=== PATIENT | male | born 1995 | race Caucasian/White ===

== ENCOUNTER 2023-02-06 06:42 | Outpatient (REF) | payer OTHER, SELFPAY ==
[2023-02-06 07:05] LABS: MANUAL DIFF FLAG NO
[2023-02-06 08:05] LABS: Basophils Percent Auto 0.5 % (0-2); Eosinophils Absolute Auto 0.1 X10*3/uL (0.0-0.4); Eosinophils Percent Auto 1.5 % (0-4); Hematocrit 47.4 % (42.0-52.0); Hemoglobin 15.3 g/dl (14.0-18.0); Imm Gran Abs Auto 0.03 X10*3/uL (0.00-0.03); Imm Gran Pct Auto 0.4 % (0.0-0.4); Lymphocytes Absolute Auto 1.2 X10*3/uL (1.2-4.9); Mean Corpuscular HGB Conc 32.3 g/dl (31.0-36.0); Mean Corpuscular Hemoglobin 28.5 pg (27.0-33.0); Mean Corpuscular Volume 88.4 fL (80.0-98.0); Monocytes Absolute Auto 0.8 X10*3/uL (0.1-1.2); Monocytes Percent Auto 9.8 % (2-11); Neutrophils Absolute Auto 6.3 x10*3/uL (2.0-8.3); Neutrophils Percent Auto 73.8 % (45-73); Platelet Count 247 X10*3/uL (160-400); Red Blood Count 5.36 X10*6/uL (4.60-5.80); Red Cell Distribution Width 13.4 % (11.0-16.0); White Blood Count 8.6 X10*3/uL (4.8-10.8)
[2023-02-06 09:53] LABS: Alanine Aminotransferase 22 U/L (0-40); Albumin Level 4.4 g/dL (3.5-5.0); Alkaline Phosphatase 85 U/L (39-117); Anion Gap 15 (12-20); Aspartate Amino Transferase 25 U/L (5-37); Bilirubin Total 0.5 mg/dL (0.0-1.0); Blood Urea Nitrogen 11 mg/dL (9-16); Calcium 9.5 mg/dL (8.4-10.2); Carbon Dioxide 29 mmol/L (22-29); Chloride 105 mmol/L (96-108); Cholesterol 185 mg/dL; Estimated Glomerular Filt Rate > 60; Glucose Fasting 78 mg/dL (60-99); HDL Cholesterol 43 mg/dL; LDL Cholesterol Calculated 122 mg/dl; Potassium 4.4 mmol/L (3.3-5.1); Sodium 145 mmol/L (135-145); Thyroid Stimulating Hormone 2.32 uIU/mL (0.32-4.0); Total Protein 6.8 g/dL (6.5-8.0); Triglycerides 101 mg/dL
== END 2023-02-06 06:43 | disposition home or self-care (01) ==
LOC: HO.LAB 06:42
PROVIDERS: PCP Internal Medicine; Visit Provider Internal Medicine
DX: N28.9 Disorder of kidney and ureter, unspecified (principal); E03.9 Hypothyroidism, unspecified; D64.9 Anemia, unspecified; E78.5 Hyperlipidemia, unspecified
CPT/HCPCS: 36415; 80053; 80061; 84443; 85025

== ENCOUNTER 2023-08-16 13:15 | Emergency (ER) | payer OTHER, SELFPAY ==
[2023-08-16 13:25] VITALS: BP 121/70; BP 161/71; PULSE 100; PULSE 118; RESP 22; O2SAT 94; O2SAT 96; BMI 31.6
[2023-08-16 13:34] VITALS: BP 138/68; PULSE 97; RESP 26; TEMP 35.7; O2SAT 98
--- NOTE | 2023-08-16 14:01 | ED.GENADULT ---
HPI - General Adult General Chief complaint: General Medical Stated complaint: ?SEIZURE, AMS Time Seen by Provider: 08/16/23 13:23 History of Present Illness HPI narrative: Patient is a 27-year-old male history of being mentally challenged. Has a chromosomal deletion. Baseline function is a 6-year-old. History of being on Guanfacine and also fluoxetine. There has been no changes in medication. Patient had a sudden episode where he collapsed onto the floor. Sitting in a chair that time. Patient was found by driver wheelchair to be very lethargic. Eyes gazing to 1 side. He is not on any blood thinners. Baseline he is awake alert oriented to self able to recognize family. Patient has been very lethargic since. There was a question of seizure when the patient was a child. Not on medication. There is no fever no chills. Related Data Home Medications Medication Instructions Recorded Confirmed guanfacine 2 mg tablet,extended 2 mg PO QAM 01/19/21 01/24/23 release 24 hr hydroxyzine HCl 10 mg tablet 10 mg PO Q6H PRN 01/19/21 01/24/23 Previous Rx's Medication Instructions Recorded guanfacine 2 mg tablet 2 mg PO BEDTIME #90 tabs 02/28/23 fluoxetine 40 mg capsule 40 mg PO DAILY #90 caps 06/15/23 levetiracetam 500 mg tablet 500 mg PO BID #20 tabs 08/16/23 (Keppra) Allergies Allergy/AdvReac Type Severity Reaction Status Date / Time No Known Allergies Allergy Verified 01/24/23 10:01 Review of Systems Review of Systems: No fever no chills. Positive loss of consciousness is noted by bystander. Unable to obtain full review system 2nd patient's condition [facility] Past Medical History Attestation statement: The following information was validated with the patient. Medical History Chromosome abnormalities Cognitive decline Social History Social History Housing: House Alcohol intake: never Patient Tobacco Use Status: Never used Tobacco Smoked in Last 30 Days: No e-Cigarette/Vaping Use: Never Used Second Hand Smoke Exposure: No Use of substances other than those prescribed or required for medical reasons: No Advance Directives: No Advance Directives Information Provided: Yes service: No Current occupational status: disabled Cognitive needs: No Hearing needs: No Vision needs: No Physical Exam ED Vital Signs: Vital Signs - 24 hr 08/16/23 13:25 08/16/23 13:34 08/16/23 15:22 Temperature 96.2 F L Pulse Rate 100 97 94 Respiratory Rate 22 H 26 H 14 Blood Pressure 161/71 H 138/68 124/56 L Pulse Oximetry 94 98 95 Oxygen Delivery Method Room Air Room Air Room Air 08/16/23 17:53 Temperature Pulse Rate 94 Respiratory Rate 21 H Blood Pressure 108/64 Pulse Oximetry 93 Oxygen Delivery Method Room Air BMI result Body Mass Index 31.6 Appearance: Alert. Oriented to self No acute distress. Eyes: Pupils equal, round and reactive to light. ENT: Pharynx normal. Neck: Normal inspection. Neck supple. No lymph nodes noted. No crepitus CVS: Normal heart rate and rhythm. Pulses normal. Normal S1 and S2 Respiratory: No respiratory distress. Breath sounds normal. No Wheezing. No rales Abdomen: Soft and nontender. No rigidity. No distention. good BS x4 Skin: Skin warm and dry. Normal skin color. Normal skin turgor. Extremities: No lower extremity edema. Neurovascular intact to all extremities. No Lacerations. No Rash Neuro: Oriented to self. No motor deficit. No sensory deficit. Moving all extermities. No slurred speech Medications Administered Discontinued Medications Generic Name Dose Route Start Last Admin Trade Name Freq PRN Reason Stop Dose Admin Sodium Chloride 1,000 mls @ 999 mls/hr 08/16/23 14:00 08/16/23 15:21 Ns IV 08/16/23 15:00 Infused .Q1H1M DANIELA Infusion Sodium Chloride 1,000 mls @ 999 mls/hr 08/16/23 14:45 08/16/23 16:15 Ns IV 08/16/23 15:45 Infused .Q1H1M DANIELA Infusion Medical Decision Making Medical Decision Making [facility] Narrative: My interpretation of Patient's EKG showed a sinus pattern heart rate is 90 MT QRS QTC within normal limits is no acute ST segment elevation My interpretation patient's CT scan of the head was grossly negative. Patient monitor in the emergency department for many hours. The initial lactate was elevated consistent with having a seizure. A repeat lactate after IV fluid showed a normal lactate. There is no evidence for sepsis. Patient's mental status is now back to baseline. Attempted to contact Neurology multiple times no reply. Will start patient on Keppra given patient has a history of cognitive decline history of chromosomal abnormality in the past. Currently in stable condition. Finding discussed with family agree with plan. Will have patient closely follow-up with Neurology on an outpatient basis. Differential Diagnosis Differential Diagnoses: The differential diagnosis associated with the presentation includes Seizure syncope dehydration arrhythmia infection Admission/Observation Consideration of admission/observation: Escalation of care including admission/observation considered Patient mental status back to baseline no need for admission Lab Data MDM Lab Attestation statement: I reviewed the patient's lab results. 08/16/23 14:07 08/16/23 14:07 Labs: Lab Results 08/16/23 08/16/23 08/16/23 Range/Units 14:07 14:24 16:31 WBC 12.1 H (4.8-10.8) X10*3/uL RBC 5.14 (4.60-5.80) X10*6/uL Hgb 14.2 (14.0-18.0) g/dl Hct 43.6 (42.0-52.0) % MCV 84.8 (80.0-98.0) fL MCH 27.6 (27.0-33.0) pg MCHC 32.6 (31.0-36.0) g/dl RDW 13.8 (11.0-16.0) % Plt Count 273 (160-400) X10*3/uL MPV 11.5 (9.4-12.4) fL Immature Gran % (Auto) 1.1 H (0.0-0.4) % Neut % (Auto) 76.4 H (45-73) % Lymph % (Auto) 13.4 L (20-40) % Cameron % (Auto) 7.9 (2-11) % Eos % (Auto) 0.7 (0-4) % Baso % (Auto) 0.5 (0-2) % Lymph # (Auto) 1.6 (1.2-4.9) X10*3/uL Cameron # (Auto) 1.0 (0.1-1.2) X10*3/uL Eos # (Auto) 0.1 (0.0-0.4) X10*3/uL Baso # (Auto) 0.1 (0.0-0.2) X10*3/uL Abs Immat Gran (auto) 0.13 H (0.00-0.03) X10*3/uL Absolute Neuts (auto) 9.2 H (2.0-8.3) x10*3/uL Absolute Nucleated RBC 0.000 (0.0-0.012) X10*3/uL Nucleated RBC % (auto) 0.0 (0.0-0.2) /100WBC Sodium 136 (135-145) mmol/L Potassium 3.1 L D (3.3-5.1) mmol/L Chloride 99 (96-108) mmol/L Carbon Dioxide 18 L (22-29) mmol/L Anion Gap 22 H (12-20) BUN 10 (9-16) mg/dL Creatinine 0.84 (0.5-1.4) mg/dL Estim Creat Clear Calc 135.7 Estimated GFR > 60 Random Glucose 177 H (60-115) mg/dL Lactic Acid 4.7 H* (0.5-2.0) mmol/L Lactic Acid F/U @ 2Hr 1.4 (0.5-2.0) mmol/L Calcium 9.1 (8.4-10.2) mg/dL Total Bilirubin 0.4 (0.0-1.0) mg/dL AST 30 (5-37) U/L ALT 26 (0-40) U/L Alkaline Phosphatase 88 (39-117) U/L Total Protein 6.8 (6.5-8.0) g/dL Albumin 4.0 (3.5-5.0) g/dL Lipase 17 (8-78) U/L COVID-19 ([facility]) Negative (Negative) COVID-19 Clin Com See Note Independent Interpretation I performed an independent interpretation of an: EKG (Sinus heart rate is 90 MT QRS QTC within normal limits is no acute ST segment elevation noted.) and CT Scan (CT scan of the head was grossly negative for any acute evidence of bleeding. No fracture noted.) Radiology Impression Discussion of test interpretation with radiology: I have reviewed the radiologist's reading. Independent Historian Clinical information obtained from an independent historian. History obtained from or confirmed by: Parent Additional history obtained through patient's guardian and also patient's parent External Record Review External record reviewed: Office record Outpatient record reviewed Prescription Management Will give Keppra Chronic Conditions Depression, chromosomal abnormality cognitive issues Discharge Plan Discharge Clinical Impression: Chromosome abnormalities, Depression, Seizure Patient Disposition: Home, Self-Care Instructions: New-Onset Seizure in Adults (ED) Additional Instructions: Seizure precautions. No activities output urine danger care of a seizure that time. Prescriptions: New levetiracetam [Keppra] 500 mg tablet 500 mg PO BID Qty: 20 0RF No Action guanfacine 2 mg tablet 2 mg PO BEDTIME Qty: 90 8RF fluoxetine 40 mg capsule 40 mg PO DAILY Qty: 90 8RF guanfacine 2 mg tablet extended release 24 hr 2 mg PO QAM hydroxyzine HCl 10 mg tablet 10 mg PO Q6H PRN Referrals: Jorge Ferrera MD [Physician] - 08/20/23
[2023-08-16 14:11] LABS: MANUAL DIFF FLAG NO
[2023-08-16 14:16] LABS: Basophils Absolute Auto 0.1 X10*3/uL (0.0-0.2); Basophils Percent Auto 0.5 % (0-2); Eosinophils Absolute Auto 0.1 X10*3/uL (0.0-0.4); Eosinophils Percent Auto 0.7 % (0-4); Hematocrit 43.6 % (42.0-52.0); Hemoglobin 14.2 g/dl (14.0-18.0); Imm Gran Abs Auto 0.13 X10*3/uL (0.00-0.03); Imm Gran Pct Auto 1.1 % (0.0-0.4); Lymphocytes Absolute Auto 1.6 X10*3/uL (1.2-4.9); Lymphocytes Percent Auto 13.4 % (20-40); Mean Corpuscular HGB Conc 32.6 g/dl (31.0-36.0); Mean Corpuscular Hemoglobin 27.6 pg (27.0-33.0); Mean Corpuscular Volume 84.8 fL (80.0-98.0); Mean Platelet Volume 11.5 fL (9.4-12.4); Monocytes Percent Auto 7.9 % (2-11); Neutrophils Absolute Auto 9.2 x10*3/uL (2.0-8.3); Neutrophils Percent Auto 76.4 % (45-73); Platelet Count 273 X10*3/uL (160-400); Red Blood Count 5.14 X10*6/uL (4.60-5.80); Red Cell Distribution Width 13.8 % (11.0-16.0); White Blood Count 12.1 X10*3/uL (4.8-10.8)
[2023-08-16 14:28] LABS: Lactic Acid 4.7 mmol/L (0.5-2.0)
[2023-08-16 14:29] LABS: Alanine Aminotransferase 26 U/L (0-40); Alkaline Phosphatase 88 U/L (39-117); Anion Gap 22 (12-20); Aspartate Amino Transferase 30 U/L (5-37); Bilirubin Total 0.4 mg/dL (0.0-1.0); Blood Urea Nitrogen 10 mg/dL (9-16); Calcium 9.1 mg/dL (8.4-10.2); Carbon Dioxide 18 mmol/L (22-29); Chloride 99 mmol/L (96-108); Creatinine Clr Calc Pharmacy 135.7; Estimated Glomerular Filt Rate > 60; Glucose Random 177 mg/dL (60-115); Lipase 17 U/L (8-78); Potassium 3.1 mmol/L (3.3-5.1); Sodium 136 mmol/L (135-145); Total Protein 6.8 g/dL (6.5-8.0)
[2023-08-16 14:47] LABS: IDNOW Serial# 9DB6401D
[2023-08-16 14:48] LABS: COVID-19 Test Negative (Negative)
[2023-08-16 15:22] VITALS: BP 124/56; PULSE 94; RESP 14; O2SAT 95
[2023-08-16 17:53] VITALS: BP 108/64; PULSE 94; RESP 21; O2SAT 93
[2023-08-16 20:40] VITALS: BP 107/67; PULSE 93; RESP 18; TEMP 36.9; O2SAT 98
== END 2023-08-16 21:02 | disposition home or self-care (01) ==
PROVIDERS: Emergency Provider Emergency Medicine Emergency Medical Services; PCP Internal Medicine
DX: Q99.9 Chromosomal abnormality, unspecified (principal); F32.A Depression, unspecified; R56.9 Unspecified convulsions; R41.89 Other symptoms and signs involving cognitive functions and awareness; Z79.899 Other long term (current) drug therapy; Z11.52 Encounter for screening for COVID-19
CPT/HCPCS: 36415; 70450; 72125; 80053; 83605; 83690; 85025; 87635; 93005; 96361; 96365; 99284; J1953

== ENCOUNTER 2023-08-21 09:08 | Outpatient (AMB) | payer OTHER, SELFPAY ==
--- NOTE | 2023-08-21 09:09 | MHC.PC.OV ---
Vital Signs 08/21/23 09:10 Height 5 ft 5 in Weight 191 lb BMI 31.8 BP 130/70 Blood Pressure Location Lt brachial Position Sitting Pulse 90 Pulse Source Pulse Oximeter Pulse Oximetry (%) 98 Oxygen Delivery Method Room Air Intake Visit Reasons: seizures, need referral Technical Marketing Consultant: Present Allergies No Known Allergies Allergy (Verified 08/21/23 09:10) Medication List - Last Reconciled 08/21/23 by Compa Weathers MD fluoxetine 40 mg PO DAILY guanfacine 2 mg PO BEDTIME guanfacine ER 2 mg PO QAM hydroxyzine HCl 10 mg PO Q6H PRN levetiracetam (Keppra) 500 mg PO BID Tobacco use date assessed: 01/24/23 Dental Screening Dental Screen Date: 08/21/23 Did you have a dental visit in the last 12 months?: No Did you have a dental problem in the last 6 months where you did not have access to dental care?: No Was dental information given to patient?: Patient has dentist HPI seizures, need referral HPI Details had a generalized Sz last week; brought to er and begun on Keppra; none since; needs neuro [facility] Medical History (Updated 08/21/23 @ 09:33 by Compa Weathers MD) Seizure Chromosome abnormalities Cognitive decline Social History Housing: House Alcohol intake: never Patient Tobacco Use Status: Never used Tobacco e-Cigarette/Vaping Use: Never Used Second Hand Smoke Exposure: No service: No Current occupational status: disabled Cognitive needs: No Hearing needs: No Vision needs: No Questionnaire PHQ-9 Over the last 2 weeks, how often have you been bothered by any of the following problems? 1. Little interest or pleasure in doing things: not at all 2. Feeling down, depressed, or hopeless: not at all 3. Trouble falling or staying asleep, or sleeping too much: not at all 4. Feeling tired or having little energy: not at all 5. Poor appetite or overeating: not at all 6. Feeling bad about yourself - or that you are a failure or have let yourself or your family down: not at all 7. Trouble concentrating on things, such as reading the newspaper or watching television: not at all 8. Moving or speaking so slowly that other people could have noticed. Or the opposite - being so fidgety or restless that you have been moving around a lot more than usual: not at all 9. Thoughts that you would be better off or of hurting yourself in some way: not at all Total score: 0 Depression Screening Interpretation: Negative Depression Screening Done: Yes 31156 - PHQ-9 Billing: Yes Source: Developed by Drs. Jovany Fan, Kaur Ang, Chucky Dos Santos and colleagues, with an educational sabrina from [employer]. Thrive Questionnaire Date Thrive assessed: 01/24/23 AUDIT C Alcohol Use Questionnaire (AUDIT-C) 1. How often do you have a drink containing alcohol?: Never Total Score: 0 Score Reviewed/Action Taken: Yes ORTIZ-7 AMB Questionnaire ORTIZ-7 Date ORTIZ - 7 assessed: 01/24/23 Source: Developed by Drs. Jovany Fan, Kaur Ang, Chucky Dos Santos and colleagues, with an educational sabrina from [employer]. Review of Systems Const Denies chills, Denies headache(s) and Denies weight loss ENT Denies headache(s) Card Denies chest pain, Denies syncope, Denies irregular heart rhythm and Denies dyspnea Resp Denies chest congestion, Denies cough and Denies dyspnea GI Denies abdominal pain, Denies change in stool character, Denies nausea and Denies vomiting Musc Denies deformity and Denies joint swelling Neuro Denies syncope and Denies headache(s) Physical exam (Primary Care) Vital Signs: Last Vital Signs Pulse 90 08/21/23 09:10 BP 130/70 08/21/23 09:10 Pulse Ox 98 08/21/23 09:10 Oxygen Delivery Method Room Air 08/21/23 09:10 BMI result Body Mass Index 31.8 Tobacco/Smoking Status: Tobacco use Status Tobacco use date assessed 01/24/23 08/21/23 09:17 Patient Tobacco Use Status Never used Tobacco 08/21/23 09:17 e-Cigarette/Vaping Use Never Used 08/21/23 09:17 PHQ-9: PHQ-9 Score PHQ-9: Total score 0 08/21/23 09:17 Depression Screening Interpretation: Negative Thrive Assessment: Date of Thrive Assessment Date Thrive assessed 03/15/23 10/10/23 09:17 Const General: cooperative, comfortable, no acute distress and alert Neck Neck: Yes no lymphadenopathy Thyroid: Thyroid normal Resp Effort & Inspection: normal respiratory effort Auscultation: clear to auscultation bilaterally Percussion: percussion normal Cardio Jugular venous distension: no JVD Palpation: normal PMI Rate: regular rate Rhythm: regular rhythm Heart sounds: S1 normal heart sound present and S2 normal heart sound present GI Inspection: Yes normal to inspection Palpation (GI): No hepatosplenomegaly present Skin General skin exam: no rashes or lesions noted Extrem General: Yes no clubbing, cyanosis or edema Assessment and Plan Assessment & Plan (1) Seizure: Code(s): R56.9 - Unspecified convulsions Plan: referred Orders: Referrals Neurology Referral R56.9 - Unspecified convulsions Coding Level of Care Code Est Pt Level 3 (73083) Diagnoses Seizure R56.9
[2023-08-21 09:10] VITALS: BP 130/70; PULSE 90; O2SAT 98; BMI 31.8
== END 2023-08-21 09:32 | disposition home or self-care (01) ==
PROVIDERS: PCP Internal Medicine; Visit Provider Internal Medicine
DX: R56.9 Unspecified convulsions (principal)
CPT/HCPCS: 99213

== ENCOUNTER 2024-01-28 09:06 | Outpatient (AMB) | payer OTHER, SELFPAY ==
--- NOTE | 2024-01-28 09:08 | A.OFFPC_ITS ---
Vital Signs 01/28/24 09:09 Height 5 ft 5 in Weight 195 lb BMI 32.4 BP 104/60 Blood Pressure Location Lt brachial Position Sitting Pulse 67 Pulse Source Pulse Oximeter Pulse Oximetry (%) 98 Oxygen Delivery Method Room Air Intake Visit Reasons: Annual exam Property Management Accountant Required: No Accompanied by: Self / Same As Patient Allergies No Known Allergies Allergy (Verified 01/28/24 09:09) Medication List - Last Reconciled 01/28/24 by Compa Weathers MD fluoxetine 40 mg PO DAILY guanfacine 2 mg PO BEDTIME guanfacine ER 2 mg PO QAM hydroxyzine HCl 10 mg PO Q6H PRN levetiracetam (Keppra) 500 mg PO BID Tobacco use date assessed: 01/28/24 HPI Annual exam HPI Details cognitive delay; doing well; compliant [facility] Medical History (Updated 01/28/24 @ 09:26 by Compa Weathers MD) Seizure Chromosome abnormalities Cognitive decline Social History (Reviewed 08/21/23 @ 09:11 by Dyan Joseph [facility]) Housing: House Alcohol intake: never Patient Tobacco Use Status: Never used Tobacco e-Cigarette/Vaping Use: Never Used Second Hand Smoke Exposure: No service: No Current occupational status: disabled Cognitive needs: No Hearing needs: No Vision needs: No Questionnaire PHQ-9 Over the last 2 weeks, how often have you been bothered by any of the following problems? 1. Little interest or pleasure in doing things: not at all 2. Feeling down, depressed, or hopeless: not at all 3. Trouble falling or staying asleep, or sleeping too much: not at all 4. Feeling tired or having little energy: not at all 5. Poor appetite or overeating: not at all 6. Feeling bad about yourself - or that you are a failure or have let yourself or your family down: not at all 7. Trouble concentrating on things, such as reading the newspaper or watching television: not at all 8. Moving or speaking so slowly that other people could have noticed. Or the opposite - being so fidgety or restless that you have been moving around a lot more than usual: not at all 9. Thoughts that you would be better off or of hurting yourself in some way: not at all Total score: 0 Depression Screening Interpretation: Negative Depression Screening Done: Yes 35521 - PHQ-9 Billing: Yes Source: Developed by Drs. Jovany Fan, Kaur Ang, Chucky Dos Santos and colleagues, with an educational sabrina from [employer]. Thrive Questionnaire Date Thrive assessed: 01/24/23 ORTIZ-7 AMB Questionnaire ORTIZ-7 Date ORTIZ - 7 assessed: 01/24/23 Source: Developed by Drs. Jovany Fan, Kaur Ang, Chucky Dos Santos and colleagues, with an educational sabrina from [employer]. Review of Systems Const Denies chills, Denies fatigue, Denies headache(s) and Denies weight loss Eyes Denies change in vision, Denies diplopia and Denies eye pain ENT Denies vertigo, Denies dizziness, Denies headache(s) and Denies nasal discharge Card Denies chest pain, Denies rapid heart rate and Denies dyspnea on exertion Resp Denies chest congestion, Denies cough, Denies pain with cough and Denies dyspnea on exertion GI Denies abdominal pain, Denies hematochezia and Denies change in bowel habits Musc Denies myalgias, Denies arthralgias and Denies joint swelling Skin/Breast Denies lesions and Denies unusual bruising Neuro Denies vertigo, Denies dizziness, Denies headache(s) and Denies focal weakness Endo Denies fatigue Physical exam (Primary Care) Vital Signs: Last Vital Signs Pulse 67 01/28/24 09:09 BP 104/60 01/28/24 09:09 Pulse Ox 98 01/28/24 09:09 Oxygen Delivery Method Room Air 01/28/24 09:09 BMI result Body Mass Index 32.4 Tobacco/Smoking Status: Tobacco use Status Tobacco use date assessed 01/28/24 01/28/24 09:09 Patient Tobacco Use Status Never used Tobacco 01/28/24 09:09 e-Cigarette/Vaping Use Never Used 01/28/24 09:09 PHQ-9: PHQ-9 Score PHQ-9: Total score 0 01/28/24 09:09 Depression Screening Interpretation: Negative Thrive Assessment: Date of Thrive Assessment Date Thrive assessed 01/24/23 01/28/24 09:09 Const General: cooperative, healthy appearing and no acute distress Orientation/consciousness: oriented to person, oriented to place and oriented to time HENMT Head: Yes normal to inspection, Yes normocephalic and Yes atraumatic Mouth: Normal oral and palatal mucosa present and tongue normal Throat: Yes posterior oropharynx normal and Yes uvula midline Eyes General: appearance normal, both eyes and all related structures Neck Neck: Yes normal visual inspection, Yes full ROM and Yes no lymphadenopathy Thyroid: Thyroid normal Carotids: normal carotid upstroke Chest Chest palpation & inspection: normal inspection of the chest Resp Effort & Inspection: normal respiratory effort and able to speak in complete sentences Auscultation: clear to auscultation bilaterally Cardio Jugular venous distension: no JVD Palpation: normal PMI Rate: regular rate Rhythm: regular rhythm Heart sounds: S1 normal heart sound present and S2 normal heart sound present GI Inspection: Yes normal to inspection Palpation (GI): Soft to palpation and No hepatosplenomegaly present Auscultation: normal bowel sounds General: Yes no CVA tenderness Back/Spine/Pelvis Back: no CVA tenderness Skin General skin exam: no rashes or lesions noted Neuro General: oriented to person, oriented to place and oriented to time Extrem General: Yes normal to inspection and Yes full ROM Assessment and Plan Assessment & Plan (1) Physical exam: Code(s): Z00.00 - Encounter for general adult medical examination without abnormal findings Plan: stable (2) Cognitive developmental delay: Code(s): F81.9 - Developmental disorder of scholastic skills, unspecified Plan: sees neuro Coding Level of Care Code Est Pt Prev Care 18-39y(97245) Diagnoses Physical exam Z00.00 Cognitive developmental delay F81.9
[2024-01-28 09:09] VITALS: BP 104/60; PULSE 67; O2SAT 98; BMI 32.4
== END 2024-01-28 09:25 | disposition home or self-care (01) ==
PROVIDERS: Visit Provider Internal Medicine
DX: Z00.00 Encounter for general adult medical examination without abnormal findings (principal); F81.9 Developmental disorder of scholastic skills, unspecified
CPT/HCPCS: 99395

== ENCOUNTER 2025-02-11 15:02 | Outpatient (AMB) | payer OTHER, SELFPAY ==
--- NOTE | 2025-02-11 15:07 | A.OFFPC_ITS ---
Vital Signs 02/11/25 15:11 Height 5 ft 5 in Weight 178 lb 2 oz BMI 29.6 BP 130/74 Blood Pressure Location Lt brachial Position Sitting Pulse 92 Pulse Source Pulse Oximeter Temp 96.6 F L Temp Source Temporal Artery Scan Pulse Oximetry (%) 97 Oxygen Delivery Method Room Air Intake Visit Reasons: PE Intake Note: Patient is here today for a physical and JOSE from Dr Weathers. Medical Researcher Required: No Metal Fabricator Helper: Present Accompanied by: Mother Allergies No Known Allergies Allergy (Verified 02/11/25 15:23) Medication List - Last Reconciled 02/11/25 by Vanesa Olea PA-C fluoxetine 40 mg PO DAILY guanfacine 2 mg PO BEDTIME guanfacine ER 2 mg PO QAM hydroxyzine HCl 10 mg PO Q6H PRN levetiracetam (Keppra) 500 mg PO BID Tobacco use date assessed: 02/11/25 Dental Screening Dental Screen Date: 02/11/25 Did you have a dental visit in the last 12 months?: No Did you have a dental problem in the last 6 months where you did not have access to dental care?: No Was dental information given to patient?: No HPI PE HPI Details 29-year-old male with past medical histo ry of cognitive developmental delay, depression, seizure last seen by Dr. Weathers 01/2024 coming in for annual exam. Presenting with an annual physical examination. Patient presents with his mother who is his primary historian. History of depression, currently managed with fluoxetine, with no recent changes in medication regimen. Depression and anxiety screenings were negative. Seizures managed with Keppra twice daily, with the last seizure occurring in August 2023, patient does also see [facility]rology. Otomycosis identified during the physical examination, showing significant discharge due to water retention in the ear canals from showers. Hydroxyzine used previously for aggression, not utilized recently. [facility] Medical History Seizure Chromosome abnormalities Cognitive decline Surgical History History of surgery of head Social History Housing: House Alcohol intake: never Patient Tobacco Use Status: Never used Tobacco e-Cigarette/Vaping Use: Never Used Second Hand Smoke Exposure: No service: No Current occupational status: disabled Cognitive needs: No Hearing needs: No Vision needs: No Questionnaire PHQ-9 Over the last 2 weeks, how often have you been bothered by any of the following problems? 1. Little interest or pleasure in doing things: not at all 2. Feeling down, depressed, or hopeless: not at all 3. Trouble falling or staying asleep, or sleeping too much: not at all 4. Feeling tired or having little energy: not at all 5. Poor appetite or overeating: not at all 6. Feeling bad about yourself - or that you are a failure or have let yourself or your family down: not at all 7. Trouble concentrating on things, such as reading the newspaper or watching television: not at all 8. Moving or speaking so slowly that other people could have noticed. Or the opposite - being so fidgety or restless that you have been moving around a lot more than usual: not at all 9. Thoughts that you would be better off or of hurting yourself in some way: not at all Total score: 0 Depression Screening Interpretation: Negative Depression Screening Done: Yes Source: Developed by Drs. Jovany Fan, Kaur Ang, Chucky Dos Santos and colleagues, with an educational sabrina from [employer]. Thrive Questionnaire Date Thrive assessed: 02/11/25 I am a: Patient What is your living situation today?: I have a steady place to live Within the past 12 months, did the food you bought not last and you didn't have the money to get more?: Never true Within the past 12 months, did you worry whether your food would run out before you got money to buy more?: Never true Do you have trouble paying for medicines?: No Do you have trouble getting transportation to medical appointments?: No Do you have trouble paying your heating and electricity bill?: No Do you have trouble taking care of your child, family member or friend?: No Do you have trouble with day-to-day activities such as bathing, preparing meals, shopping, managing finances, etc.?: No Are you currently unemployed and looking for a job?: No Are you interested in more education?: No Please select the resources that you would like help with: None Currently or been in a relationship where the following occur: No concerns reported THRIVE Score: 0 AUDIT C Alcohol Use Questionnaire (AUDIT-C) 1. How often do you have a drink containing alcohol?: Never Total Score: 0 ORTIZ-7 AMB Questionnaire ORTIZ-7 Date ORTIZ - 7 assessed: 02/11/25 Feeling nervous, anxious, or on edge: 0 = Not at all Not being able to stop or control worryin = Not at all Worrying too much about different things: 0 = Not at all Trouble relaxin = Not at all Being so restless that it is hard to sit still: 0 = Not at all Becoming easily annoyed or irritable: 0 = Not at all Feeling afraid as if something awful might happen: 0 = Not at all Total ORTZI-7 score (0-4 normal; 5-9 mild; 10-14 moderate; 15-21 severe): 0 Source: Developed by Drs. Jovany Fan, Kaur Ang, Chucky Dos Santos and colleagues, with an educational sabrina from [employer]. ORTIZ-7 Assessment Billing ORTIZ-7 Assessment Tool: ORTIZ-7 Assessment 42980 Review of Systems Const Details: Obtained primarily through patient is mother Denies fever(s), Denies headache(s) and Denies poor appetite Eyes Reports no additional complaints ENT Denies dysphagia, Denies dizziness and Denies headache(s) Card Denies chest pain, Denies syncope, Denies edema, Denies irregular heart rhythm, Denies lightheadedness and Denies dyspnea Resp Denies cough and Denies dyspnea GI Denies abdominal pain, Denies constipation, Denies dysphagia, Denies diarrhea, Denies nausea and Denies vomiting Reports no additional complaints Musc Reports no additional complaints and Denies abnormal gait Skin/Breast Reports system reviewed and no additional complaints, except as documented Neuro Denies abnormal gait, Denies dizziness, Denies syncope and Denies headache(s) Psych Reports no additional complaints Physical exam (Primary Care) Vital Signs: Last Vital Signs Temp 96.6 F L 02/11/25 15:11 Pulse 92 02/11/25 15:11 BP 130/74 02/11/25 15:11 Pulse Ox 97 02/11/25 15:11 Oxygen Delivery Method Room Air 02/11/25 15:11 BMI result Body Mass Index 29.6 Tobacco/Smoking Status: Tobacco use Status Tobacco use date assessed 01/28/24 01/27/25 08:06 Patient Tobacco Use Status Never used Tobacco 01/27/25 08:06 e-Cigarette/Vaping Use Never Used 01/27/25 08:06 Depression Screening Interpretation: Negative Thrive Assessment: Date of Thrive Assessment Date Thrive assessed 01/24/23 01/27/25 08:06 Currently or been in a relationship where the following occur: No concerns reported Const General: cooperative, healthy appearing, comfortable and no acute distress Orientation/consciousness: patient oriented x3 HENMT Head: Yes normocephalic Ears: hearing grossly normal bilaterally and Abnormal EAC present otic discharge purulent on the right General nose exam: Normal external nose present Eyes General: appearance normal, both eyes and all related structures Conjunctivae: conjunctivae normal Neck Neck: Yes full ROM and Yes no lymphadenopathy Resp Effort & Inspection: normal respiratory effort Auscultation: clear to auscultation bilaterally, no crackles, no rales, no rhonchi and no wheezes Cardio Rate: regular rate Rhythm: regular rhythm Skin General skin exam: no rashes or lesions noted Neuro General: patient oriented x3 Gait exam (Neuro): Normal gait present Extrem General: Yes normal to inspection, Yes full ROM and No edema Psych Affect: normal affect Attitude: cooperative Insight: Good insight present (Psych) Judgement: Good judgement present (Psych) Coding Level of Care Code Est Pt Prev Care 18-39y(00437) Diagnoses Cognitive developmental delay F81.9 Seizure R56.9 Depression F32.A Physical exam Z00.00 Otitis externa H60.90 Additional Codes ORTIZ-7 Assessment Billing - ORTIZ-7 Assessment Tool: ORTIZ-7 Assessment 90812 ([id number]) Assessment & Plan Assessment & Plan (1) Cognitive developmental delay: Code(s): F81.9 - Developmental disorder of scholastic skills, unspecified Category: Medical Plan: Patient has support system at home. Currently using fluoxetine for depression and hydroxyzine as needed for agitation. (2) Seizure: Code(s): R56.9 - Unspecified convulsions Category: Medical Plan: Patient currently following with [facility] Neurology Dr. Ferrera for management of seizure disorder. Last seizure August 2023 without recurrence. (3) Depression: Code(s): F32.A - Depression, unspecified Category: Medical Plan: For depression, the patient will continue current management with fluoxetine as screenings were negative. (4) Physical exam: Code(s): Z00.00 - Encounter for general adult medical examination without abnormal findings Category: Medical Plan: Blood work will be conducted to include general health markers such as kidney and liver function, while cholesterol screening is deferred until the patient is closer to 30 years of age. The patient will be careful with potential exacerbations and is advised to return for immediate care if symptoms deviate. Healthy diet and regular exercise is encouraged. (5) Otitis externa: Code(s): H60.90 - Unspecified otitis externa, unspecified ear Category: Medical Plan: On exam patient having copious amounts of purulent discharge within the right ear canal. Patient's mom does report itching in bilateral ears. Presentation most consistent with otitis externa we will prescribe ear drops and advised to follow up if itching persists. Plan This note was constructed using voice recognition software. While every effort has been made to ensure accuracy and draw furnace tender, still areas may have been included sometimes these areas may affect the content or meeting of the given symptoms. Total time spent caring for the patient today was 30 minutes. This includes time spent before the visit reviewing the chart, time spent during the visit, and time spent after the visit and documentation. Patient was informed and verbally consented to the use of an ambient scribe for clinic note documentation during this visit. Orders: Orders Vitamin D 25-OH Total Today Z00.00 - Encounter for general adult medical examination without abnormal findings TSH reflex Free T4 Today Z00.00 - Encounter for general adult medical examination without abnormal findings Comprehensive Met. Panel Today Z00.00 - Encounter for general adult medical examination without abnormal findings Complete Blood Count Auto Diff Today Z00.00 - Encounter for general adult medical examination without abnormal findings Vitamin B12 and Folate Today Z00.00 - Encounter for general adult medical examination without abnormal findings Free T4 (Free Thyroxine) Today Z00.00 - Encounter for general adult medical examination without abnormal findings Medications: New ciprofloxacin-hydrocortisone 0.2-1 % (Cipro HC) 3 drps otic (ear) right BID 7 days 10 mL 0RF
[2025-02-11 15:11] VITALS: BP 130/74; PULSE 92; TEMP 35.9; O2SAT 97; BMI 29.6
== END 2025-02-11 15:34 | disposition home or self-care (01) ==
LOC: HO.HMCH 15:02
PROVIDERS: PCP Internal Medicine
DX: Z00.00 Encounter for general adult medical examination without abnormal findings (principal); F81.9 Developmental disorder of scholastic skills, unspecified; R56.9 Unspecified convulsions; F32.A Depression, unspecified; H60.91 Unspecified otitis externa, right ear

== ENCOUNTER → 2025-02-11 15:02 | Outpatient (BNVA) | payer OTHER, SELFPAY | PROVIDERS: PCP Internal Medicine | DX: Z00.00 Encounter for general adult medical examination without abnormal findings (principal); F81.9 Developmental disorder of scholastic skills, unspecified; R56.9 Unspecified convulsions; F32.A Depression, unspecified; H60.90 Unspecified otitis externa, unspecified ear | CPT/HCPCS: 96127; 99395 ==

== ENCOUNTER 2025-07-07 14:01 | Outpatient (AMB) | payer MEDICARE, MEDICAID, SELFPAY ==
--- NOTE | 2025-07-07 14:09 | MHC.PC.OV ---
Vital Signs 07/07/25 14:11 Height 5 ft 5 in Weight 168 lb 2 oz BMI 28.0 BP 118/66 Blood Pressure Location Lt brachial Position Sitting Pulse 158 H Pulse Source Pulse Oximeter Pulse Oximetry (%) 90 L Oxygen Delivery Method Room Air Intake Visit Reasons: vomiting in morning. Microbiology Manager Required: No Accompanied by: Self / Same As Patient Allergies No Known Allergies Allergy (Verified 07/07/25 15:31) Medication List - Last Reconciled 07/07/25 by Vanesa Olea PA-C ciprofloxacin-hydrocortisone 0.2-1 % (Cipro HC) 3 drps otic (ear) right BID 7 days fluoxetine 40 mg PO DAILY guanfacine 2 mg PO BEDTIME hydroxyzine HCl 10 mg PO Q6H PRN levetiracetam (Keppra) 500 mg PO BID Tobacco use date assessed: 07/07/25 Dental Screening Dental Screen Date: 07/07/25 Did you have a dental visit in the last 12 months?: No Did you have a dental problem in the last 6 months where you did not have access to dental care?: No Was dental information given to patient?: Patient has dentist HPI vomiting in morning. HPI Details 29-year-old male with past medical history of cognitive developmental delay, depression, seizure last seen 02/2025 coming in for acute problem. Presenting with symptoms of lethargy, vomiting, and leg swelling. Symptoms began 4 to 5 days ago, with intermittent vomiting of clear, foamy phlegm and leg swelling. The patient denies fever and consistent diarrhea, but reports lethargy and a pale appearance. Headaches described as 'brain hurts' occur, improving after some time. No history of similar symptoms, new foods, or recent family illnesses. History of COVID-19 infection twice, but current symptoms differ from previous episodes. Patient is a poor historian and has difficulty communicating concerns due to cognitive delay primarily relies on his mom for communication. [facility] Medical History (Updated 07/08/25 @ 12:37 by Vanesa Olea PA-C) Crohn disease Seizure Chromosome abnormalities Cognitive decline Surgical History (Updated 07/08/25 @ 09:10 by Jovany Chris MD) History of surgery of head Social History Household Members: Caregiver Housing: House Alcohol intake: never Patient Tobacco Use Status: Never used Tobacco Smoked in Last 30 Days: No e-Cigarette/Vaping Use: Never Used Second Hand Smoke Exposure: No Use of substances other than those prescribed or required for medical reasons: No Advance Directives: No Advance Directives Information Provided: Yes Do you have a plan to hurt others: No Plan Nutrition Risks: No Nutritional Risk Poor oral hygiene: No service: No Current occupational status: disabled Cognitive needs: No Hearing needs: No Vision needs: No Questionnaire PHQ-9 Over the last 2 weeks, how often have you been bothered by any of the following problems? 1. Little interest or pleasure in doing things: not at all 2. Feeling down, depressed, or hopeless: not at all 3. Trouble falling or staying asleep, or sleeping too much: not at all 4. Feeling tired or having little energy: not at all 5. Poor appetite or overeating: not at all 6. Feeling bad about yourself - or that you are a failure or have let yourself or your family down: not at all 7. Trouble concentrating on things, such as reading the newspaper or watching television: not at all 8. Moving or speaking so slowly that other people could have noticed. Or the opposite - being so fidgety or restless that you have been moving around a lot more than usual: not at all 9. Thoughts that you would be better off or of hurting yourself in some way: not at all Total score: 0 Depression Screening Interpretation: Negative Depression Screening Done: Yes Source: Developed by Drs. Jovany Fan, Kaur Ang, Chucky Dos Santos and colleagues, with an educational sabrina from [employer]. Thrive Questionnaire Date Thrive assessed: 07/05/25 I am a: Patient What is your living situation today?: I have a steady place to live Within the past 12 months, did the food you bought not last and you didn't have the money to get more?: Never true Within the past 12 months, did you worry whether your food would run out before you got money to buy more?: Never true Do you have trouble paying for medicines?: No Do you have trouble getting transportation to medical appointments?: No Do you have trouble paying your heating and electricity bill?: No Do you have trouble taking care of your child, family member or friend?: No Do you have trouble with day-to-day activities such as bathing, preparing meals, shopping, managing finances, etc.?: Yes Are you currently unemployed and looking for a job?: No Are you interested in more education?: No Please select the resources that you would like help with: None Currently or been in a relationship where the following occur: I choose not to answer THRIVE Score: 0 AUDIT C Alcohol Use Questionnaire (AUDIT-C) 1. How often do you have a drink containing alcohol?: Never Total Score: 0 ORTIZ-7 AMB Questionnaire ORTIZ-7 Date ORTIZ - 7 assessed: 02/11/25 Feeling nervous, anxious, or on edge: 0 = Not at all Not being able to stop or control worryin = Not at all Worrying too much about different things: 0 = Not at all Trouble relaxin = Not at all Being so restless that it is hard to sit still: 0 = Not at all Becoming easily annoyed or irritable: 0 = Not at all Feeling afraid as if something awful might happen: 0 = Not at all Total ORTIZ-7 score (0-4 normal; 5-9 mild; 10-14 moderate; 15-21 severe): 0 Source: Developed by Drs. Jovany Fan, Kaur Ang, Chucky Dos Santos and colleagues, with an educational sabrina from [employer]. Review of Systems Const Denies body aches, Denies chills, Denies fever(s), Denies headache(s) and Denies poor appetite Eyes Reports no additional complaints ENT Denies dizziness and Denies headache(s) Card Denies chest pain, Denies lightheadedness and Denies dyspnea Resp Denies cough and Denies dyspnea GI Reports as per HPI, Denies abdominal pain, Denies constipation, Denies diarrhea, Reports nausea and Reports vomiting Reports no additional complaints Musc Reports no additional complaints and Denies abnormal gait Skin/Breast Reports system reviewed and no additional complaints, except as documented Neuro Denies abnormal gait, Denies dizziness and Denies headache(s) Psych Reports no additional complaints Physical exam (Primary Care) Vital Signs: Last Vital Signs Pulse 158 H 07/07/25 14:11 BP 118/66 07/07/25 14:11 Pulse Ox 90 L 07/07/25 14:11 Oxygen Delivery Method Room Air 07/07/25 14:11 BMI result Body Mass Index 28.0 Tobacco/Smoking Status: Tobacco use Status Tobacco use date assessed 07/07/25 07/07/25 14:12 Patient Tobacco Use Status Never used Tobacco 07/07/25 14:12 e-Cigarette/Vaping Use Never Used 07/07/25 14:12 PHQ-9: PHQ-9 Score PHQ-9: Total score 0 07/08/25 08:22 Depression Screening Interpretation: Negative Thrive Assessment: Date of Thrive Assessment Date Thrive assessed 07/05/25 07/07/25 14:12 Currently or been in a relationship where the following occur: I choose not to answer Const General: cooperative, comfortable and ill appearing acutely Orientation/consciousness: patient oriented x3 HENMT Head: Yes normocephalic Ears: hearing grossly normal bilaterally General nose exam: Normal external nose present Eyes General: appearance normal, both eyes and all related structures Conjunctivae: conjunctivae normal Neck Neck: Yes full ROM and Yes no lymphadenopathy Resp Effort & Inspection: tachypneic Auscultation: clear to auscultation bilaterally, no crackles, no rales, no rhonchi and no wheezes Cardio Rate: tachycardic Rhythm: regular rhythm GI Inspection: Yes distended Palpation (GI): Soft to palpation, not firm, nontender, no guarding and not rigid Skin General skin exam: no rashes or lesions noted Neuro General: patient oriented x3 Gait exam (Neuro): Normal gait present Extrem General: Yes normal to inspection, Yes full ROM and No edema Psych Affect: normal affect Attitude: cooperative Insight: Good insight present (Psych) Judgement: Good judgement present (Psych) Office Procedures EKG Details: EKG shows normal sinus tachycardia without signs of ischemia or arrhythmia. [id number], Complete Coding Level of Care Code Est Pt Level 4 (73560) Diagnoses Tachypnea R06.82 Tachycardia R00.0 Vomiting R11.10 CPT Codes EKG - CPT: 12744-[id number], Complete ([id number]) Assessment & Plan Assessment & Plan (1) Tachypnea: Code(s): R06.82 - Tachypnea, not elsewhere classified Category: Medical Plan: In the office patient is tachypneic breathing at about 20 respirations per minute as well as tachycardic. EKG was obtained which revealed normal sinus tachycardia and was reviewed by myself and Dr. Ramírez. At this time given his toxic appearance and concerning vital signs recommend immediate ED evaluation. I did call or report to the ER to inform them the patient is on the way and they will continue workup and treatment. (2) Tachycardia: Code(s): R00.0 - Tachycardia, unspecified Category: Medical Plan: See above (3) Vomiting: Code(s): R11.10 - Vomiting, unspecified Category: Medical Plan: See above Plan I discussed with the patient the likelihood of dehydration due to vomiting and inability to retain fluids, which may require intravenous fluids in the ER. The fast heart rate, tachypnea and low oxygen saturation were concerning, and I recommended an ER visit for further evaluation, including a chest x-ray to rule out pneumonia. I explained the importance of addressing these symptoms promptly to prevent further complications. This note was constructed using voice recognition software. While every effort has been made to ensure accuracy and electrical tests supervisor, still areas may have been included sometimes these areas may affect the content or meeting of the given symptoms. Total time spent caring for the patient today was 20 minutes. This includes time spent before the visit reviewing the chart, time spent during the visit, and time spent after the visit and documentation. Patient was informed and verbally consented to the use of an ambient scribe for clinic note documentation during this visit.
[2025-07-07 14:11] VITALS: BP 118/66; PULSE 158; O2SAT 90; BMI 28.0
== END 2025-07-07 15:58 | disposition home or self-care (01) ==
LOC: HO.HMCH 14:02
DX: R06.82 Tachypnea, not elsewhere classified (principal); R00.0 Tachycardia, unspecified; R11.10 Vomiting, unspecified

== ENCOUNTER 2025-07-07 15:25 | Inpatient (IN) | payer MEDICARE, MEDICAID, SELFPAY ==
[2025-07-07] VITALS (12 sets, daily range): BP systolic 96–121; BP diastolic 56–78; PULSE 123–156; RESP 21–54; TEMP 37.1–39.4; O2SAT 80–98; BMI 27.5
--- NOTE | 2025-07-07 | ECG_ITS ---
Test Reason : EKG ABNORMALITY Blood Pressure : */* mmHG Vent. Rate : 130 BPM Atrial Rate : 130 BPM P-R Int : 84 ms QRS Dur : 68 ms QT Int : 308 ms P-R-T Axes : 32 50 39 degrees QTcB Int : 453 ms Sinus tachycardia with short OK Otherwise normal ECG When compared with ECG of 07-Jul-2025 15:46, No significant change was found Referred By: Violeta Ramires Electronically Signed By: ISIDRA CURRY
--- NOTE | ~2025-07-07 | XR_ITS ---
EXAMINATION: XR CHEST CLINICAL INFORMATION: hypoxic COMPARISON: None available. TECHNIQUE: Frontal view of the chest was obtained. FINDINGS: There are low lung volumes with vascular crowding. There is likely a small right pleural effusion. XR/XR chest 1V IMPRESSION: Small right pleural effusion, right basilar pneumonia and/or atelectasis is not ruled out. Electronically signed by: Cipriano Stewart MD 07/07/2025 04:30 PM EDT
--- NOTE | ~2025-07-07 | CT_ITS ---
CLINICAL HISTORY: sob CT chest without contrast Comparison: None provided Findings: The heart size is normal. The visualized thyroid and mediastinum are unremarkable. Small bilateral pleural effusions. Visualized portions of the upper abdomen demonstrate multiple large abdominal masses as seen by accompanying abdominopelvic CT. No acute fractures. IMPRESSION: 1. Bilateral pleural effusions. 2. Multiple abdominal masses. This document has been electronically signed by: Sigrid Chao MD on 07/07/2025 18:06:40
--- NOTE | ~2025-07-07 | NM_ITS ---
EXAMINATION: NM LUNG PERFUSION HISTORY: Possible PE. TECHNIQUE: A pulmonary perfusion scan was performed following intravenous administration of 3.0 mCi technetium 99m-MAA. Images were obtained in multiple projections. COMPARISON: Correlation is made with a chest x-ray an unenhanced chest CT dated 07/07/2025. FINDINGS: Multiple large segmental perfusion defects are identified in both lungs. Findings are compatible with a high probability for pulmonary emboli. NM/NM pul perfusion IMPRESSION: High probability for pulmonary emboli. Electronically signed by: Jovany Snider MD 07/08/2025 08:25 AM EDT
--- NOTE | ~2025-07-07 | CT_ITS ---
CLINICAL HISTORY: abd distention CT abdomen and pelvis with contrast Comparison: CT - CT ABDOMEN PELVIS W IV CON - 07/07/25 17:04 EDT Findings: Small bilateral pleural effusions are present. Gallbladder is not seen. Solid organs are within normal limits. Nopneumatosis. Multiple large intraperitoneal masses are present, some of which are necrotic. There is a small amount of ascites. There is a fluid and gas collection within the left abdomen posteriorly measuring 13 cm. Appendix is not seen. No acute fracture. IMPRESSION: 1. Multiple intraperitoneal masses, suggestive of severe peritoneal carcinomatosis. Small amount of ascites. 2. Dilated /obstructed bowel loop versus gas containing abscess within the left abdomen posteriorly. 3. Small bilateral pleural effusions. This document has been electronically signed by: Sigrid Chao MD on 07/07/2025 18:03:29
--- NOTE | 2025-07-07 15:35 | ECG_ITS ---
Test Reason : SOB Blood Pressure : */* mmHG Vent. Rate : 152 BPM Atrial Rate : 152 BPM P-R Int : 98 ms QRS Dur : 68 ms QT Int : 264 ms P-R-T Axes : 37 54 65 degrees QTcB Int : 419 ms Sinus tachycardia with short GA Otherwise normal ECG When compared with ECG of 16-Aug-2023 13:56, GA interval has decreased Vent. rate has increased by 57 bpm Referred By: Ivan Miner Electronically Signed By: ISIDRA CURRY
--- NOTE | 2025-07-07 15:36 | PC.NURSE ---
Placed on 3LPM via nasal cannula, 91% on 3LPM with good pleth. Escorted to ED 17 with staff.
--- NOTE | 2025-07-07 15:42 | ED.GENADULT ---
HPI - General Adult General Chief complaint: Arrhythmia/Palpitations Stated complaint: Heart racing, not feeling well Time Seen by Provider: 07/07/25 16:01 History of Present Illness HPI narrative: Patient is a 29-year-old male has not been feeling well for the last few days. Advised to come to the ED because of increasing heart rate. Patient was noted to be tachycardic in the 160s. Positive coughing. Has a history of developmentally delayed. Baseline function as a 4 to 5-year-old. Baseline not on oxygen. Patient is sent in for further evaluation because of the hypoxia and abdominal distention. Question bowel movements recently. Related Data Home Medications ?Medication ?Instructions ?Recorded ?Confirmed hydroxyzine HCl 10 mg tablet 10 mg PO Q6H PRN 01/19/21 07/07/25 Previous Rx's ?Medication ?Instructions ?Recorded levetiracetam 500 mg tablet 500 mg PO BID #20 tabs 10/08/23 (Keppra) ciprofloxacin 0.2 %-hydrocortisone 3 drp otic (ear) right BID 7 days 02/11/25 1 % ear drops,suspension (Cipro HC) #10 mL fluoxetine 40 mg capsule 40 mg PO DAILY #90 caps 03/11/25 guanfacine 2 mg tablet 2 mg PO BEDTIME #90 tabs 06/24/25 Allergies Allergy/AdvReac Type Severity Reaction Status Date / Time No Known Allergies Allergy Verified 07/07/25 15:31 Review of Systems Review of Systems: Positive shortness of breath positive generalized malaise patient unable to give detailed history secondary to being mentally challenged. PMFSH Past Medical History Medical History Seizure Chromosome abnormalities Cognitive decline Surgical History History of surgery of head Social History Social History Housing: House Alcohol intake: never Patient Tobacco Use Status: Never used Tobacco Smoked in Last 30 Days: No e-Cigarette/Vaping Use: Never Used Second Hand Smoke Exposure: No Use of substances other than those prescribed or required for medical reasons: No Advance Directives: No Advance Directives Information Provided: Yes service: No Current occupational status: disabled Cognitive needs: No Hearing needs: No Vision needs: No Physical Exam ED Exam Exam: Appearance: Sick appearing male oriented to self only. Eyes: Pupils equal, round and reactive to light. ENT: Pharynx normal. Neck: Normal inspection. Neck supple. No lymph nodes noted. No crepitus CVS: Normal heart rate and rhythm. Pulses normal. Normal S1 and S2 Respiratory: Diminished breath sounds bilaterally increased respiratory rate increased work of breathing Abdomen: Distended abdomen nontender to touch Skin: Skin warm and dry. Normal skin color. Normal skin turgor. Extremities: No lower extremity edema. Neurovascular intact to all extremities. No Lacerations. No Rash Neuro: Oriented X 3. No motor deficit. No sensory deficit. Moving all extermities. No slurred speech Vital Signs: Vital Signs - 24 hr 07/07/25 15:27 07/07/25 15:50 07/07/25 16:50 Temperature 98.8 F 99.5 F 103 F H Pulse Rate 156 H 155 H 148 H Respiratory Rate 22 H 54 H 50 H Blood Pressure 115/72 102/56 L 121/76 Pulse Oximetry 80 L 92 94 Oxygen Delivery Method Room Air Nasal Cannula Non-Rebreather Mask Oxygen Flow Rate 3 15 07/07/25 17:25 07/07/25 17:30 07/07/25 18:03 Temperature 101.6 F H Pulse Rate 145 H 137 H Respiratory Rate 43 H 45 H 40 H Blood Pressure 118/67 98/71 Pulse Oximetry 96 94 Oxygen Delivery Method High Flow Nasal Cannula High Flow Nasal Cannula Oxygen Flow Rate 07/07/25 18:30 07/07/25 19:00 07/07/25 19:30 Temperature Pulse Rate 136 H 138 H 138 H Respiratory Rate 41 H 45 H 46 H Blood Pressure 105/70 108/78 116/71 Pulse Oximetry 96 96 97 Oxygen Delivery Method High Flow Nasal Cannula High Flow Nasal Cannula High Flow Nasal Cannula Oxygen Flow Rate 07/07/25 20:41 Temperature Pulse Rate Respiratory Rate 22 H Blood Pressure Pulse Oximetry Oxygen Delivery Method Oxygen Flow Rate BMI result Body Mass Index 27.5 Course Course Course Narrative: RME: 29 yold male as per luis no pmh but is developmental delayed presents to the ED for coughing and SOB. patient is tachycardic and hypoxic on triage. Patient placed on 3 liters oxygen and EKGlabs ordered. patient brought to the ED bed 17. Medications Administered Discontinued Medications Generic Name Dose Route Start Last Admin Trade Name Ellen PRN Reason Stop Dose Admin Acetaminophen 650 mg 07/07/25 16:12 07/07/25 16:55 Acetaminophen Supp 650 Mg Supp.Rect MO 07/07/25 16:13 650 mg ONCE ONE Administration Ceftriaxone Sodium 1 gm 07/07/25 16:12 07/07/25 16:37 Ceftriaxone Sodium 1 Gm Vial IVPUSH 07/07/25 16:13 1 gm ONCE ONE Administration Enoxaparin Sodium 40 mg 07/07/25 19:15 07/07/25 19:26 Enoxaparin Sodium 40 Mg/0.4 Ml Syringe SUBCUT 07/07/25 19:16 40 mg ONCE ONE Administration Enoxaparin Sodium 40 mg 07/07/25 19:17 07/07/25 19:26 Enoxaparin Sodium 40 Mg/0.4 Ml Syringe SUBCUT 07/07/25 19:18 40 mg ONCE ONE Administration Sodium Chloride 2,245.29 mls @ 2,245.29 mls/hr 07/07/25 16:12 07/07/25 18:40 Ns 30 ml/kg infuse over 1 hr (2245.29 ml) 07/07/25 17:11 Infused IV Infusion .Q1H STA Azithromycin 500 mg/ Sodium 250 mls @ 125 mls/hr 07/07/25 18:31 07/07/25 20:09 Chloride IV 07/07/25 20:30 125 mls/hr ONCE ONE Infusion Iohexol 100 ml 07/07/25 17:30 07/07/25 17:31 Iohexol 350 Mg/Ml 100 Ml Infus..Btl IV 07/07/25 17:31 85 ml ONCE ONE Administration Ketorolac Tromethamine 15 mg 07/07/25 19:21 07/07/25 19:26 Ketorolac Tromethamine 15 Mg/Ml Vial IVPUSH 07/07/25 19:22 15 mg ONCE ONE Administration Medical Decision Making Medical Decision Making MDM Narrative: Patient had elevated heart rate. Fever. Generalized malaise hypoxia. There is positive coughing. My interpretation patient's chest x-ray showed a pleural effusion on the right side. Question pneumonia. Cultures obtained. Sepsis alert was started. 30 cc/kilos IV fluid was ordered. Antibiotic was given. Patient from home Rocephin and azithromycin was started. Patient's abdomen felt diffusely heart but not tender. Question etiology of this fullness in the abdomen. Possible mass in the abdomen. We did a full CT scan of the abdomen pelvis which was positive for having carcinomatosis of the abdomen. Patient's chest CT consistent with having bilateral pleural effusion. Had a BNP of 141 there is no evidence for congestive heart failure. COVID flu RSV were all negative. In the setting of a large tumor burden can not exclude the possibility of PE. A dose of Lovenox was given. V/Q scan was ordered. Hospitalist team was contacted. After IV fluids patient's heart rate is coming down still short of breath now is on high-flow O2. Discussed with family. In the setting of carcinomatosis of the abdomen patient is made DNR DNI. Okay with antibiotics. Okay with additional treatments. V/Q scan is still pending. Of no patient's CBC showed a bandemia consistent with having an infection. My repeat focal exam for sepsis was done after IV fluids heart rate is down to 130 symptomatically looks slightly improved. After the entire fluid went in heart rate is down to 120. A V/Q scan was done. Patient was given a dose of Lovenox. Surgical team was consulted for the abdominal mass. Mcgregor patient should receive a biopsy in the morning. Further delineate the malignancy. Patient's mom also works here. Antibiotics is already in. Patient is currently in guarded condition. To be admitted. Differential Diagnosis Differential Diagnoses: The differential diagnosis associated with the presentation includes Pneumonia, pulmonary emboli, abdominal mass Admission/Observation Consideration of admission/observation: Escalation of care including admission/observation considered Will require admission for further evaluation Consult Healthcare Provider Management of the patient was discussed with: Hospitalist Lab Data [facility] Lab Attestation statement: I reviewed the patient's lab results. 07/07/25 18:56 07/07/25 16:02 Labs: Lab Results 07/07/25 07/07/25 07/07/25 Range/Units 16:02 16:24 18:56 WBC 12.6 H 11.4 H (4.8-10.8) X10*3/uL RBC 4.46 L 4.22 L (4.60-5.80) X10*6/uL Hgb 11.9 L 11.3 L (14.0-18.0) g/dl Hct 36.1 L 34.4 L (42.0-52.0) % MCV 80.9 81.5 (80.0-98.0) fL MCH 26.7 L 26.8 L (27.0-33.0) pg MCHC 33.0 32.8 (31.0-36.0) g/dl RDW 16.1 H 15.9 (11.0-16.0) % Plt Count 249 216 (160-400) X10*3/uL MPV 12.1 11.7 (9.4-12.4) fL Immature Gran % (Auto) Cancelled Neut % (Auto) Cancelled Lymph % (Auto) Cancelled [place] % (Auto) Cancelled Eos % (Auto) Cancelled Baso % (Auto) Cancelled Lymph # (Auto) Cancelled [place] # (Auto) Cancelled Eos # (Auto) Cancelled Baso # (Auto) Cancelled Abs Immat Gran (auto) Cancelled Absolute Neuts (auto) Cancelled Absolute Nucleated RBC 0.030 H 0.000 (0.0-0.012) X10*3/uL Nucleated RBC % (auto) 0.2 0.0 (0.0-0.2) /100WBC Neutrophils % (Manual) 62 (45-73) % Band Neutrophils % 19 H (3-5) % Lymphocytes % (Manual) 5 L (20-40) % Monocytes % (Manual) 13 H (2-11) % Metamyelocytes % 1 % Abs Neuts (Manual) 10.2 H (2.0-8.3) X10*3/uL Lymphocytes # (Manual) 0.6 L (1.2-4.9) X10*3/uL Monocytes # (Manual) 1.6 H (0.1-1.2) X10*3/uL Metamyelocytes # 0.1 X10*3/uL Nucleated RBCs 2 H (0-0) /100WBC Toxic Granulation PRESENT Toxic Vacuolation PRESENT Dohle Bodies PRESENT Platelet Estimate NORMAL (NORMAL) Plt Morphology Comment NORMAL RBC Morphology NOTED Polychromasia 1+ (0-2) /OIF Ovalocytes 1+ (5-14) /OIF Acanthocytes (Spur) 1+ (0-2) /OIF PT 13.2 H 13.3 H (10.9-12.4) SEC INR 1.2 H 1.2 H (0.9-1.1) APTT 23.7 L 24.3 L (26.7-34.1) SEC Sodium 135 (135-145) mmol/L Potassium 4.6 (3.3-5.1) mmol/L Chloride 97 (96-108) mmol/L Carbon Dioxide 29 (22-29) mmol/L Anion Gap 14 (12-20) BUN 13 (9-16) mg/dL Creatinine 0.61 (0.5-1.4) mg/dL Estim Creat Clear Calc 171.9 Estimated GFR > 60 Random Glucose 126 H (60-115) mg/dL Lactic Acid 1.4 (0.5-2.0) mmol/L Calcium 8.6 (8.4-10.2) mg/dL Total Bilirubin 0.8 (0.0-1.0) mg/dL AST 43 H (5-37) U/L ALT 16 (0-40) U/L Alkaline Phosphatase 91 (39-117) U/L B-Natriuretic Peptide 141 H (<100) pg/mL Total Protein 5.8 L (6.5-8.0) g/dL Albumin 3.3 L (3.5-5.0) g/dL Influenza Type A (PCR) NEGATIVE (Negative) Influenza Type B (PCR) NEGATIVE (Negative) RSV RNA Qual (PCR) NEGATIVE (Negative) SARS-CoV-2 RNA (RT-PCR) NEGATIVE (Negative) Independent Interpretation I performed an independent interpretation of an: EKG (My interpretation patient's EKG showed a sinus rhythm heart rate is 150) Radiology Impression Discussion of test interpretation with radiology: I have reviewed the radiologist's reading. Independent Historian Clinical information obtained from an independent historian. History obtained from or confirmed by: Parent External Record Review External record reviewed: Inpatient record Chronic Conditions History of congenital chromosomal 5 the lesion. Baseline mental status at approximately a 4-year-old level Social Determinants Patient?s care significantly limited by Social Determinants of Health including: Low income, Problems related to primary support group, Unemployment and Other Social Determinant of Health Critical Care Time Critical Care Time Critical Care Time: Yes Total Critical Care Time: 45 Attestation: I have personally provided 45 minutes of critical care time exclusive of time spent on separately billable procedures. ?Time includes review of lab data, radiology results, discussion with consultants, and monitoring for potential decompensation. ?Interventions were performed as documented above Discharge Plan Discharge Clinical Impression: Abdominal carcinomatosis, Pneumonia Patient Disposition: Admitted As Inpatient Print Language: Filipino
[2025-07-07 16:16] LABS: Hematocrit 36.1 % (42.0-52.0); Hemoglobin 11.9 g/dl (14.0-18.0); Mean Corpuscular HGB Conc 33.0 g/dl (31.0-36.0); Mean Corpuscular Hemoglobin 26.7 pg (27.0-33.0); Mean Corpuscular Volume 80.9 fL (80.0-98.0); NRBC Abs Auto 0.030 X10*3/uL (0.0-0.012); NRBC Pct Auto 0.2 /100WBC (0.0-0.2); Platelet Count 249 X10*3/uL (160-400); Red Blood Count 4.46 X10*6/uL (4.60-5.80); White Blood Count 12.6 X10*3/uL (4.8-10.8)
[2025-07-07 16:21] LABS: Alanine Aminotransferase 16 U/L (0-40); Albumin Level 3.3 g/dL (3.5-5.0); Alkaline Phosphatase 91 U/L (39-117); Anion Gap 14 (12-20); Aspartate Amino Transferase 43 U/L (5-37); Blood Urea Nitrogen 13 mg/dL (9-16); Calcium 8.6 mg/dL (8.4-10.2); Carbon Dioxide 29 mmol/L (22-29); Chloride 97 mmol/L (96-108); Creatinine Clr Calc Pharmacy 171.9; Estimated Glomerular Filt Rate > 60; Potassium 4.6 mmol/L (3.3-5.1); Sodium 135 mmol/L (135-145); Total Protein 5.8 g/dL (6.5-8.0)
[2025-07-07 16:27] LABS: B Type Natriuretic Peptide 141 pg/mL (<100)
[2025-07-07 16:30] LABS: INTERNATIONAL NORM RATIO 1.2 (0.9-1.1); Prothrombin Time 13.2 SEC (10.9-12.4)
[2025-07-07] MEDS: 0.9 % Sodium Chloride 2,245.29 ML 2245.29 ML IV (16:32)
[2025-07-07 16:33] LABS: Partial Thromboplastin Time 23.7 SEC (26.7-34.1)
[2025-07-07] MEDS: Acetaminophen Supp 650 MG SUPP.RECT PR (16:55)
[2025-07-07 16:57] LABS: Neutrophils Percent Manual 62 % (45-73)
[2025-07-07 16:59] LABS: Acanthocytes 1+ (0-2) /OIF; Band Neutrophils Percent 19 % (3-5); Lymphocytes Absolute Manual 0.6 X10*3/uL (1.2-4.9); Lymphocytes Percent Manual 5 % (20-40); Metamyelocytes Absolute 0.1 X10*3/uL; Metamyelocytes Percent 1 %; Monocytes Absolute Manual 1.6 X10*3/uL (0.1-1.2); Monocytes Percent Manual 13 % (2-11); Neutrophils Absolute Manual 10.2 X10*3/uL (2.0-8.3); Ovalocytes 1+ (5-14) /OIF; RBC Morphology NOTED
[2025-07-07 17:00] LABS: Dohle Bodies PRESENT; Polychromasia 1+ (0-2) /OIF; Toxic Granulation PRESENT; Toxic Vacuolation PRESENT
[2025-07-07 17:07] LABS: Resp Syncy Virus RNA Qual PCR NEGATIVE (Negative); SARS COV2 PCR INHOUSE NEGATIVE (Negative)
[2025-07-07] MEDS: iohexoL 350 MG/ML 100 ML INFUS..BTL IV (17:31)
[2025-07-07 19:02] LABS: Hematocrit 34.4 % (42.0-52.0); Hemoglobin 11.3 g/dl (14.0-18.0); Mean Corpuscular HGB Conc 32.8 g/dl (31.0-36.0); Mean Corpuscular Hemoglobin 26.8 pg (27.0-33.0); Mean Corpuscular Volume 81.5 fL (80.0-98.0); NRBC Abs Auto 0.000 X10*3/uL (0.0-0.012); NRBC Pct Auto 0.0 /100WBC (0.0-0.2); Platelet Count 216 X10*3/uL (160-400); Red Blood Count 4.22 X10*6/uL (4.60-5.80); White Blood Count 11.4 X10*3/uL (4.8-10.8)
--- NOTE | 2025-07-07 19:33 | PC.NURSE ---
Azithro IVPB paused for nuc med scan. Pt transported via stretcher w/cardiac monitoring and respiratory, on high flow O2.
[2025-07-07 20:03] LABS: INTERNATIONAL NORM RATIO 1.2 (0.9-1.1); Prothrombin Time 13.3 SEC (10.9-12.4)
[2025-07-07 20:06] LABS: Partial Thromboplastin Time 24.3 SEC (26.7-34.1)
--- NOTE | 2025-07-07 20:42 | PC.RT ---
Pt brought to nuclear medicine on High Flow 45L 70% with no incidents. Pt renzo transfer there and back to ER well. Pt is on continuous monitoring. Will titrate settings as tolerated.
--- NOTE | 2025-07-07 21:10 | PM.CNGS ---
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 Patient was diagnosed before by amniocentesis of mom and when he was born he had been followed at [facility] in [place]. He underwent some type of surgery for the bony structures of his skull in the forehead area but other than that he has not had any surgeries. Generally he functions at about a 4 5-year-old level and is able to walk and move around. He is able to eat and feed himself. Mom takes care of him and helps dressing and shower him. Over the last several days she noted that he has been coughing up more so than vomiting of phlegm material. This started becoming more so over the last few days and his breathing started to look more labored. She went to her PCP today and he was seen and evaluated and noted to be tachypneic and tachycardic in the 130s. As a result they advised him coming to the emergency room. Here he was tachypneic and heart rate in the 160s and blood work revealed white count that was little elevated but he had a bandemia of about 19. He was exhibiting signs of sepsis and the patient was resuscitated with IV fluid as per sepsis protocol. He was also started on antibiotics. Patient had CT scan of his chest which showed findings consistent with some pneumonia and then since his abdomen was quite distended and firm CT scan of the abdomen and pelvis was carried out at the same time which showed large mass areas within the abdominal cavity consistent with most likely moderate carcinomatosis question etiology. In discussion with mom she said that she had thought over the last several months it his abdomen was little bigger and more distended but just thought that he was just getting factor as he was eating and not having any issues until recently. She denies any nausea or vomiting other than the recent coughing up and no issues with constipation we will trouble urination. Patient is taken care of on a daily basis by his sister who is his caregiver in his mom. Review of Systems Review of Systems: Yes Unobtainable due to mental condition PMFSH Past Medical History Medical History Seizure Chromosome abnormalities Cognitive decline Surgical History Surgical History History of surgery of head Social History Social History Housing: House Alcohol intake: never Patient Tobacco Use Status: Never used Tobacco Smoked in Last 30 Days: No e-Cigarette/Vaping Use: Never Used Second Hand Smoke Exposure: No Use of substances other than those prescribed or required for medical reasons: No Advance Directives: No Advance Directives Information Provided: Yes service: No Current occupational status: disabled Cognitive needs: No Hearing needs: No Vision needs: No Meds Allergies Allergy/AdvReac Type Severity Reaction Status Date / Time No Known Allergies Allergy Verified 07/07/25 15:31 Home Medications ?Medication ?Instructions ?Recorded ?Confirmed ?Last Taken ?Type hydroxyzine HCl 10 mg tablet 10 mg PO Q6H PRN 01/19/21 07/07/25 Unknown History Physical Exam Vital Signs: Vital Signs: Last Vital Signs Temp 101.6 F H 07/07/25 18:03 Pulse 138 H 07/07/25 19:30 Resp 22 H 07/07/25 20:41 BP 116/71 07/07/25 19:30 Pulse Ox 97 07/07/25 19:30 O2 Del Method High Flow Nasal C annula 07/07/25 19:30 O2 Flow Rate 15 07/07/25 16:50 BMI result Body Mass Index 27.5 Const: Other: Patient awakens with verbal command and is able to speak briefly. Denies any pain. Eyes: Other: Nonicteric Resp: Other: Tachypnea Cardio: Other: Tachycardic GI: Other: Abdomen is firm distended but not tympanitic not seemingly tender but mass firm this most consistent over the upper abdomen right side. Exam of the skin soft tissue does not reveal any lesions erosions. Extrem: General: Yes normal to inspection Results Labs 07/07/25 18:56 07/07/25 16:02 Labs: Abnormal lab results 07/07/25 07/07/25 Range/Units 16:02 18:56 WBC 12.6 H 11.4 H (4.8-10.8) X10*3/uL RBC 4.46 L 4.22 L (4.60-5.80) X10*6/uL Hgb 11.9 L 11.3 L (14.0-18.0) g/dl Hct 36.1 L 34.4 L (42.0-52.0) % MCH 26.7 L 26.8 L (27.0-33.0) pg RDW 16.1 H (11.0-16.0) % Absolute Nucleated RBC 0.030 H (0.0-0.012) X10*3/uL Band Neutrophils % 19 H (3-5) % Lymphocytes % (Manual) 5 L (20-40) % Monocytes % (Manual) 13 H (2-11) % Abs Neuts (Manual) 10.2 H (2.0-8.3) X10*3/uL Lymphocytes # (Manual) 0.6 L (1.2-4.9) X10*3/uL Monocytes # (Manual) 1.6 H (0.1-1.2) X10*3/uL Nucleated RBCs 2 H (0-0) /100WBC PT 13.2 H 13.3 H (10.9-12.4) SEC INR 1.2 H 1.2 H (0.9-1.1) APTT 23.7 L 24.3 L (26.7-34.1) SEC Random Glucose 126 H (60-115) mg/dL AST 43 H (5-37) U/L B-Natriuretic Peptide 141 H (<100) pg/mL Total Protein 5.8 L (6.5-8.0) g/dL Albumin 3.3 L (3.5-5.0) g/dL Short CBC 07/07/25 07/07/25 Range/Units 16:02 18:56 WBC 12.6 H 11.4 H (4.8-10.8) X10*3/uL Hgb 11.9 L 11.3 L (14.0-18.0) g/dl Hct 36.1 L 34.4 L (42.0-52.0) % Plt Count 249 216 (160-400) X10*3/uL BMP 07/07/25 16:02 Sodium 135 Potassium 4.6 Chloride 97 Carbon Dioxide 29 BUN 13 Creatinine 0.61 Calcium 8.6 Liver Function 07/07/25 Range/Units 16:02 Total Bilirubin 0.8 (0.0-1.0) mg/dL AST 43 H (5-37) U/L ALT 16 (0-40) U/L Alkaline Phosphatase 91 (39-117) U/L Albumin 3.3 L (3.5-5.0) g/dL All other labs normal. Imaging Abdomen CT scan report/results: report reviewed and image reviewed CT scan - pelvis: report reviewed and image reviewed Additional studies: CT Scan Report Signed Patient: Jeff Mirza MR#: [id number] : 1995 Acct:[id number] Age/Sex: 29 / M ADM Date: 07/07/25 Loc: HO.ED Attending Dr: Ordering Physician: Monse Mcintyre MD Date of Service: 07/07/25 Procedure(s): CT abdomen pelvis w IV con Accession Number(s): [id number] cc: Monse Mcintyre MD; Vanesa Olea PA-C~ Report Number: [id number]: Total DLP = 873.00 mGy-cm CLINICAL HISTORY: abd distention CT abdomen and pelvis with contrast Comparison: CT - CT ABDOMEN PELVIS W IV CON - 07/07/25 17:04 EDT Findings: Small bilateral pleural effusions are present. Gallbladder is not seen. Solid organs are within normal limits. Nopneumatosis. Multiple large intraperitoneal masses are present, some of which are necrotic. There is a small amount of ascites. There is a fluid and gas collection within the left abdomen posteriorly measuring 13 cm. Appendix is not seen. No acute fracture. IMPRESSION: 1. Multiple intraperitoneal masses, suggestive of severe peritoneal carcinomatosis. Small amount of ascites. 2. Dilated /obstructed bowel loop versus gas containing abscess within the left abdomen posteriorly. 3. Small bilateral pleural effusions. 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 Here workup reveals bandemia with the elevated white count and the septic picture. He has been resuscitated with IV fluids and antibiotics in his doing a little bit better in regards to his comfort and his vital signs. CT scan showing large solid mass tumor question carcinomatosis in the abdominal cavity uncertain what primary etiology would be. There is nothing going on abdominal earl that would necessitate emergent surgery. Discussion with hospitalist team in the emergency room with a agreement to admit continue the resuscitation overnight, tomorrow carry out biopsy of the mass most likely in the right upper quadrant where it is very close of the skin surface and determine what we are dealing with. Medical team to continue with airway breathing circulation resuscitation. Antibiotics helpful at this point blood cultures carried out. We will follow along Procedures Date of Service Date of Service: 07/07/25
--- NOTE | 2025-07-07 22:04 | PHA.MEDREC ---
Addendum entered by Samson Barron, PharmD 07/07/25 22:11: MED REC CHECKED BY [facility] Original Note: Pharmacy Consult ? Medication Reconciliation Pharmacy has completed the medication reconciliation. Spoke with pt mother and she confirmed the pt medications.
--- NOTE | 2025-07-07 22:24 | PM.IMHP ---
History of Present Illness Date of Service: 07/07/25 Attending physician on admission: Db Fonseca Chief Complaint: tachycardia Patient is a 29-year-old male with a past medical history significant for Crohn's disease, chromosome 5 depletion disorder, seizure disorder, developmental delay, who presented to the ED due to tachycardia. He has been to be tachycardic in the 160s with increased phlegm production over the past few days. He was sent by his primary care doctor. His mother notes that he has baseline function of a 4 to 5-year-old and is unable to communicate pain symptoms. She does not feel that he has been short of breath over the past few days. She denies a cough but states constant throat clearing with phlegm production. She describes this as frothy vomit. She denies any fever. His abdomen has been distended for an unknown period of time, likely gradually increasing, the patient's mother felt that this was weight gain and non concerning. He has been eating normally up until the past few days but has not had much to eat or drink due to the vomiting episodes. Review of Systems Review of Systems: Yes Unobtainable due to mental condition [facility] Medical History (Updated 07/07/25 @ 22:46 by Eliz Mooney PA-C) Crohn disease Seizure Chromosome abnormalities Cognitive decline Surgical History History of surgery of head Social History Housing: House Alcohol intake: never Patient Tobacco Use Status: Never used Tobacco Smoked in Last 30 Days: No e-Cigarette/Vaping Use: Never Used Second Hand Smoke Exposure: No Use of substances other than those prescribed or required for medical reasons: No Advance Directives: No Advance Directives Information Provided: Yes service: No Current occupational status: disabled Cognitive needs: No Hearing needs: No Vision needs: No Meds Allergies Allergy/AdvReac Type Severity Reaction Status Date / Time No Known Allergies Allergy Verified 07/07/25 15:31 Home Medications ?Medication ?Instructions ?Recorded ?Confirmed ?Last Taken ?Type guanfacine 2 mg tablet 2 mg PO DAILY 07/07/25 07/07/25 07/07/25 History iemqqojo-rotufwpa-rpjvi acid 400 1 tab PO DAILY 07/07/25 07/07/25 07/07/25 History mcg-vit K 20 mcg-lycop 300 mcg tablet (One-A-Day Men's Multivitamin) Physical Exam Vital Signs and Narrative: Vital Signs: Last Vital Signs Temp 101.6 F H 07/07/25 18:03 Pulse 138 H 07/07/25 19:30 Resp 22 H 07/07/25 20:41 BP 116/71 07/07/25 19:30 Pulse Ox 97 07/07/25 19:30 O2 Del Method High Flow Nasal C annula 07/07/25 19:30 O2 Flow Rate 15 07/07/25 16:50 BMI result Body Mass Index 27.5 General: Alert, unable to determine orientation to person, place or time, no acute distress Resp: crackles bilaterally, no wheezing CVS: tachycardic, normal rhythm GI: Bowel sounds difficult to auscultate due to large distention/abdominal masses, NT, severely distended Skin: Warm, dry Neuro: Cranial nerves II-XII grossly intact bilaterally. Motor grossly intact bilaterally Extremities: 1-2+ pitting edema, L>R Psych: Appropriate affect Results Labs 07/07/25 18:56 07/07/25 16:02 Labs: Laboratory Results - last 24 hr 07/07/25 07/07/25 07/07/25 16:02 16:24 18:56 MCV 80.9 81.5 MCH 26.7 L 26.8 L MCHC 33.0 32.8 RDW 16.1 H 15.9 Plt Count 249 216 MPV 12.1 11.7 Immature Gran % (Auto) Cancelled Neut % (Auto) Cancelled Lymph % (Auto) Cancelled [place] % (Auto) Cancelled Eos % (Auto) Cancelled Baso % (Auto) Cancelled Lymph # (Auto) Cancelled [place] # (Auto) Cancelled Eos # (Auto) Cancelled Baso # (Auto) Cancelled Abs Immat Gran (auto) Cancelled Absolute Neuts (auto) Cancelled Absolute Nucleated RBC 0.030 H 0.000 Nucleated RBC % (auto) 0.2 0.0 Neutrophils % (Manual) 62 Band Neutrophils % 19 H Lymphocytes % (Manual) 5 L Monocytes % (Manual) 13 H Metamyelocytes % 1 Abs Neuts (Manual) 10.2 H Lymphocytes # (Manual) 0.6 L Monocytes # (Manual) 1.6 H Metamyelocytes # 0.1 Nucleated RBCs 2 H Toxic Granulation PRESENT Toxic Vacuolation PRESENT Dohle Bodies PRESENT Platelet Estimate NORMAL Plt Morphology Comment NORMAL RBC Morphology NOTED Polychromasia 1+ (0-2) Ovalocytes 1+ (5-14) Acanthocytes (Spur) 1+ (0-2) PT 13.2 H 13.3 H INR 1.2 H 1.2 H APTT 23.7 L 24.3 L Anion Gap 14 Estim Creat Clear Calc 171.9 Estimated GFR > 60 Random Glucose 126 H Lactic Acid 1.4 Calcium 8.6 Total Bilirubin 0.8 AST 43 H ALT 16 Alkaline Phosphatase 91 B-Natriuretic Peptide 141 H Total Protein 5.8 L Albumin 3.3 L Influenza Type A (PCR) NEGATIVE Influenza Type B (PCR) NEGATIVE RSV RNA Qual (PCR) NEGATIVE SARS-CoV-2 RNA (RT-PCR) NEGATIVE Imaging Radiologist's Impressions: Impressions Chest X-Ray 07/07/25 15:14 IMPRESSION: Small right pleural effusion, right basilar pneumonia and/or atelectasis is not ruled out. Electronically signed by: Cipriano Stewart MD 07/07/2025 04:30 PM EDT RP Assessment and Plan (1) Acute hypoxic respiratory failure: Status: Acute (2) Sepsis: Status: Acute (3) Pleural effusion: Status: Acute (4) Pneumonia: Status: Acute (5) Intra-abdominal abscess: Status: Acute (6) Abdominal mass: Status: Acute (7) Pitting edema: Status: Acute Plan Patient is a 29-year-old male with a past medical history significant for Crohn's disease, chromosome 5 depletion disorder, seizure disorder, developmental delay, who presented to the ED due to tachycardia. He has been to be tachycardic in the 160s with increased phlegm production over the past few days. Acute hypoxic respiratory failure with sepsis secondary to pleural effusion, pneumonia and intra-abdominal abscess/masses - WBC 11.4, bads 19%, tachycardic and tachypneic, febrile at 103.0, lactic acid normal, blood cultures x2 pending, not severe sepsis - chest x-ray with small right pleural effusion and right-sided pneumonia - chest CT with bilateral pleural effusions, multiple abdominal masses - abdominopelvic CT with severe peritoneal carcinomatosis, multiple intraperitoneal masses, small bilateral pleural effusion and small ascites. Dilated/obstructed bowel loop versus gas containing abscess within the left abdomen posteriorly measuring up to 13 cm. - COVID/flu/RSV negative - BNP 141 - VQ scan pending - started on ceftriaxone and azithromycin in ED, switch to vancomycin and Zosyn - given therapeutic lovenox in ED, continue prophylactic lovenox pending results - per surgery possible lymphoma, nothing acute, patient should have tissue biopsy tomorrow, vancomycin/Zosyn - surgery consult - patient received 30 cc/kg fluid bolus in ED, blood pressure is holding, refrain from further fluids due to pleural effusions and pitting edema - echocardiogram - LLE venous duplex - CT head to r/o mets - oncology consult - NPO pending swallow evaluation - currently on high-flow oxygen, titrate as needed - monitor CBC and BMP Seizure disorder - continue Keppra 500 mg b.i.d. DNR/DNI, pt's mother considering FISH HATCHERY INSPECTOR if needed VTE prophy: lovenox Pt with acute hypoxic respiratory failure with sepsis secondary to pleural effusion, pneumonia and intra-abdominal abscesses, requiring admission for at least 2 midnights stay for further evaluation, IV antibiotics and monitoring. Quality Stroke Does the patient have a stroke diagnosis?: No VTE Prior VTE?: No VTE Risk Level:: Medical - moderate - high VTE Device Contraindication: Treatment Not Indicated VTE Drug Contraindication: N/A - Med Ordered
--- NOTE | 2025-07-07 22:53 | MHC.EDTECH ---
Routine Consults for Surgery & oncology consult were notified. Surgery's office took the message and Dr. Aquino was directly tigered at [phone]
[2025-07-07] MEDS: levETIRAcetam in NaCl (iso-os) 500 MG/100 ML PIGGYBACK 400 MG IV (23:48)
[2025-07-07] MEDS: 0.9 % Sodium Chloride Flush 3 ML SYRINGE IVFLUSH (23:49)
[2025-07-08] VITALS (8 sets, daily range): BP systolic 91–135; BP diastolic 49–83; PULSE 123–194; RESP 18–44; TEMP 36.9–38.8; O2SAT 95–98
--- NOTE | 2025-07-08 | ECG_ITS ---
Test Reason : tachy in the 180s Blood Pressure : */* mmHG Vent. Rate : 195 BPM Atrial Rate : 195 BPM P-R Int : 82 ms QRS Dur : 62 ms QT Int : 224 ms P-R-T Axes : 40 19 18 degrees QTcB Int : 403 ms Sinus tachycardia with short AL Nonspecific ST abnormality Abnormal ECG When compared with ECG of 07-Jul-2025 20:22, Vent. rate has increased by 65 bpm Referred By: Ailyn Cochran Electronically Signed By: ISIDRA CURRY
[2025-07-08 07:06] LABS: Hematocrit 41.6 % (42.0-52.0); Hemoglobin 12.9 g/dl (14.0-18.0); Mean Corpuscular HGB Conc 31.0 g/dl (31.0-36.0); Mean Corpuscular Hemoglobin 26.1 pg (27.0-33.0); Mean Corpuscular Volume 84.2 fL (80.0-98.0); NRBC Abs Auto 0.030 X10*3/uL (0.0-0.012); Platelet Count 245 X10*3/uL (160-400); Red Blood Count 4.94 X10*6/uL (4.60-5.80)
[2025-07-08 07:08] LABS: NRBC Pct Auto 1.1 /100WBC (0.0-0.2); WBC ABN SCTR FOR CBC 1
[2025-07-08 07:09] LABS: Anion Gap 16 (12-20); Blood Urea Nitrogen 13 mg/dL (9-16); Calcium 8.3 mg/dL (8.4-10.2); Carbon Dioxide 26 mmol/L (22-29); Chloride 102 mmol/L (96-108); Creatinine Clr Calc Pharmacy 169.1; Estimated Glomerular Filt Rate > 60; Potassium 4.4 mmol/L (3.3-5.1); Sodium 140 mmol/L (135-145)
[2025-07-08 07:41] LABS: Band Neutrophils Percent 24 % (3-5); Eosinophils Percent Manual 1 % (0-4); Lymphocytes Percent Manual 15 % (20-40); Metamyelocytes Percent 7 %; Monocytes Percent Manual 1 % (2-11); Myelocytes Percent 2 %; Neutrophils Percent Manual 50 % (45-73)
[2025-07-08 07:44] LABS: Acanthocytes 1+ (0-2) /OIF; Burr Cells 3+ (>5) /OIF; Large Platelet PRESENT; Ovalocytes 1+ (5-14) /OIF; Polychromasia 1+ (0-2) /OIF; RBC Morphology NOTED; Toxic Vacuolation PRESENT
[2025-07-08 07:45] LABS: Lymphocytes Absolute Manual 0.4 X10*3/uL (1.2-4.9); Metamyelocytes Absolute 0.2 X10*3/uL; Myelocytes Absolute 0.1 X10*/uL; Neutrophils Absolute Manual 1.9 X10*3/uL (2.0-8.3); White Blood Count 2.6 X10*3/uL (4.8-10.8)
--- NOTE | 2025-07-08 08:22 | PM.DS ---
DS: Providers Provider Date of Service: 07/08/25 Date of admission: 07/07/25 22:23 Date of discharge: 07/08/25 Primary care physician: Vanesa Olea PA-C Consults: 07/07/25 22:32 Consult to General Surgery Routine Consulting Provider: [facility] General Surgeons Reason for consultation: abd masses/fluid/gas collection Has provider been notified: Yes Consult to Hematology / Oncology Routine Consulting Provider: [facility] Oncology/Hematology Reason for consultation: mulitple abd masses on CT Has provider been notified: No DS: Diagnosis Discharge Diagnosis (1) Acute hypoxic respiratory failure: Status: Acute (2) Sepsis: Status: Acute (3) Pleural effusion: Status: Acute (4) Pneumonia: Status: Acute (5) Intra-abdominal abscess: Status: Acute (6) Abdominal mass: Status: Acute (7) Pitting edema: Status: Acute DS: Summary Hospital Course Hospital Course: From admission HPI: Date of Service: 07/07/25 Attending physician on admission: Db Fonseca Chief Complaint: tachycardia Patient is a 29-year-old male with a past medical history significant for Crohn's disease, chromosome 5 depletion disorder, seizure disorder, developmental delay, who presented to the ED due to tachycardia. He has been to be tachycardic in the 160s with increased phlegm production over the past few days. He was sent by his primary care doctor. His mother notes that he has baseline function of a 4 to 5-year-old and is unable to communicate pain symptoms. She does not feel that he has been short of breath over the past few days. She denies a cough but states constant throat clearing with phlegm production. She describes this as frothy vomit. She denies any fever. His abdomen has been distended for an unknown period of time, likely gradually increasing, the patient's mother felt that this was weight gain and non concerning. He has been eating normally up until the past few days but has not had much to eat or drink due to the vomiting episodes. Hospital course: Pt was admitted to the hospital for acute hypoxic respiratory failure with sepsis in the setting of pleural effusion, pneumonia, and intra-abdominal abscesses/masses. Pt's vitals in the ED were significant for fever of 103, tachycardia in the 150s, tachypnea in the 40s, and desatting as low as 80% on RA. CT of chest showed bilateral pleural effusions. CT of abd/pelvis revealed multiple intraperitoneal masses, some necrotic, suggestive of severe peritoneal carcinomatosis, as well as dilated/obstructed bowel loop vs gas containing abscess within the left abd. Pulmonary perfusion imaging was also performed but not officially read until approximately 40 minutes after pt : findings with high probability for pulmonary emboli. Pt was treated with sepsis bolus fluids, empiric ceftriaxone, azithromycin, vancomycin, and Zosyn, therapeutic Lovenox, and placed on high-flow. General surgery was consulted and, given extent of pt's intra abdominal masses, found nothing that would necessitate emergent surgical intervention. Both ED clinician and hospitalist team had long discussions with mother about pt's poor prognosis, and she was considering ENGLISH COMPOSITION INSTRUCTOR if pt's condition continued to deteriorate. Plan was to treat empirically with vanc and Zosyn, therapeutic Lovenox, high-flow, and, if stable enough, RUQ biopsy of mass the following morning. Pt was made DNR/DNI and he was brought to the the hospital floor. Was notified by nursing around 7:16 that pt's HR was climbing in the 180s though BP stable at 125/83; EKG ordered and showed sinus tachycardia of 195. Pt seen and evaluated where he was noted to be tachypnic in the 40s, agitated, and restless, occasionally trying to climb out of bed. He complained of pain but was unable to specify location. Attempted to give pt morphine but IV was infiltrated. Spoke to mother at bedside about pt's poor prognosis, but that we would do what we could to make him comfortable. The patient then at 07:52 on 08/08/2025. He had no detectable pulse, heartbeat, or respiratory effort, and pupils were dilated and nonreactive. Family was at bedside. Time Attestation Discharge Coordination Time (in mins): 35 Quality: Safe Use of Opioids Does Pt have an Active Cancer Diagnosis on the Problem List?: No Quality: Stroke Does the patient have a stroke diagnosis?: No Physical Exam Exam: Exam: Pt had no detectable pulse, heartbeat, or respiratory effort Pupils were dilated and nonreactive. Vital Signs: Vital Signs: Last Vital Signs Temp 98.4 F 07/08/25 07:27 Pulse 192 H 07/08/25 07:27 Resp 44 H 07/08/25 07:42 BP 125/83 07/08/25 07:27 Pulse Ox 95 07/08/25 07:27 O2 Del Method High Flow Nasal C annula 07/08/25 07:27 O2 Flow Rate 50 07/08/25 07:27 FiO2 80 07/08/25 07:27 BMI result Body Mass Index 27.5 DS: Data Data Completed and Pending Labs on day of discharge: Laboratory Results - last 24 hr 07/07/25 07/07/25 07/07/25 16:02 16:24 18:56 WBC 12.6 H 11.4 H RBC 4.46 L 4.22 L Hgb 11.9 L 11.3 L Hct 36.1 L 34.4 L MCV 80.9 81.5 MCH 26.7 L 26.8 L MCHC 33.0 32.8 RDW 16.1 H 15.9 Plt Count 249 216 MPV 12.1 11.7 Immature Gran % (Auto) Cancelled Neut % (Auto) Cancelled Lymph % (Auto) Cancelled [place] % (Auto) Cancelled Eos % (Auto) Cancelled Baso % (Auto) Cancelled Lymph # (Auto) Cancelled [place] # (Auto) Cancelled Eos # (Auto) Cancelled Baso # (Auto) Cancelled Abs Immat Gran (auto) Cancelled Absolute Neuts (auto) Cancelled Absolute Nucleated RBC 0.030 H 0.000 Nucleated RBC % (auto) 0.2 0.0 Neutrophils % (Manual) 62 Band Neutrophils % 19 H Lymphocytes % (Manual) 5 L Monocytes % (Manual) 13 H Eosinophils % (Manual) Metamyelocytes % 1 Myelocytes % Abs Neuts (Manual) 10.2 H Lymphocytes # (Manual) 0.6 L Monocytes # (Manual) 1.6 H Metamyelocytes # 0.1 Myelocytes # Nucleated RBCs 2 H Toxic Granulation PRESENT Toxic Vacuolation PRESENT Dohle Bodies PRESENT Platelet Estimate NORMAL Large Platelets Plt Morphology Comment NORMAL RBC Morphology NOTED Polychromasia 1+ (0-2) Ovalocytes 1+ (5-14) Margaret Cells Acanthocytes (Spur) 1+ (0-2) PT 13.2 H 13.3 H INR 1.2 H 1.2 H APTT 23.7 L 24.3 L Sodium 135 Potassium 4.6 Chloride 97 Carbon Dioxide 29 Anion Gap 14 BUN 13 Creatinine 0.61 Estim Creat Clear Calc 171.9 Estimated GFR > 60 Random Glucose 126 H Lactic Acid 1.4 Calcium 8.6 Total Bilirubin 0.8 AST 43 H ALT 16 Alkaline Phosphatase 91 Lactate Dehydrogenase B-Natriuretic Peptide 141 H Total Protein 5.8 L Albumin 3.3 L Influenza Type A (PCR) NEGATIVE Influenza Type B (PCR) NEGATIVE RSV RNA Qual (PCR) NEGATIVE SARS-CoV-2 RNA (RT-PCR) NEGATIVE 07/08/25 06:07 WBC 2.6 L RBC 4.94 Hgb 12.9 L Hct 41.6 L D MCV 84.2 MCH 26.1 L MCHC 31.0 RDW 16.2 H Plt Count 245 MPV 12.5 H Immature Gran % (Auto) Cancelled Neut % (Auto) Cancelled Lymph % (Auto) Cancelled [place] % (Auto) Cancelled Eos % (Auto) Cancelled Baso % (Auto) Cancelled Lymph # (Auto) Cancelled [place] # (Auto) Cancelled Eos # (Auto) Cancelled Baso # (Auto) Cancelled Abs Immat Gran (auto) Cancelled Absolute Neuts (auto) Cancelled Absolute Nucleated RBC 0.030 H Nucleated RBC % (auto) 1.1 H Neutrophils % (Manual) 50 Band Neutrophils % 24 H Lymphocytes % (Manual) 15 L Monocytes % (Manual) 1 L Eosinophils % (Manual) 1 Metamyelocytes % 7 Myelocytes % 2 Abs Neuts (Manual) 1.9 L Lymphocytes # (Manual) 0.4 L Monocytes # (Manual) Metamyelocytes # 0.2 Myelocytes # 0.1 Nucleated RBCs 2 H Toxic Granulation Toxic Vacuolation PRESENT Dohle Bodies Platelet Estimate NORMAL Large Platelets PRESENT Plt Morphology Comment NOTED RBC Morphology NOTED Polychromasia 1+ (0-2) Ovalocytes 1+ (5-14) Margaret Cells 3+ (>5) Acanthocytes (Spur) 1+ (0-2) PT INR APTT Sodium 140 Potassium 4.4 Chloride 102 Carbon Dioxide 26 Anion Gap 16 BUN 13 Creatinine 0.62 Estim Creat Clear Calc 169.1 Estimated GFR > 60 Random Glucose 95 Lactic Acid Calcium 8.3 L Total Bilirubin AST ALT Alkaline Phosphatase Lactate Dehydrogenase 211 B-Natriuretic Peptide Total Protein Albumin Influenza Type A (PCR) Influenza Type B (PCR) RSV RNA Qual (PCR) SARS-CoV-2 RNA (RT-PCR) Discharge Plan Discharge Date/Time: 07/08/25 07:52 Patient Disposition: Discharge Diagnosis: Acute hypoxic respiratory failure with sepsis in the setting of pleural effusion, pneumonia, and intra-abdominal abscesses/masses Referrals: Vanesa Olea PA-C [Primary Care Provider, Internal Medicine] - 1 Week Discharge Medications: No Action levetiracetam [Keppra] 500 mg tablet 500 mg PO BID Qty: 20 0RF fluoxetine 40 mg capsule 40 mg PO DAILY Qty: 90 1RF One-A-Day Men's Multivitamin 400-20-300 mcg Tablet 1 tab PO DAILY guanfacine 2 mg tablet 2 mg PO DAILY Print Language: Vietnamese Discharge Date/Time: 07/08/25 11:56
--- NOTE | 2025-07-08 09:08 | PM.HEMONCCN ---
Subjective - Subjective Chief complaint: abdominal masses Patient: new to practice Consult date: 07/08/25 Primary Care Provider: Vanesa Olea PA-C Entry Level Manager Utilized?: No - Cypriot Speaking HPI - Consult Narrative Reason for consult: abdomnal carcinomatosis Narrative: Jeff Mirza is a 29 year old male I received this consultation request at 4:17 A.M. today. I arrived at [facility] at 8:30 to find he had at 7:52 am. A consultation could not bedone. [facility] Medical History: Medical History (Last Reviewed 07/08/25 @ 03:10 by Josie Abdul RN) Chromosome abnormalities Cognitive decline Crohn disease Seizure Surgical History: Surgical History (Last Reviewed 07/08/25 @ 03:10 by Josie Abdul RN) History of surgery of head Social History: Social History (Last Reviewed 07/08/25 @ 03:10 by Josie Abdul RN) Living Situation History: Household Members: Caregiver Housing: House Do you presently have visiting nurse or other home services: Do you presently have visiting nurse or other home services comment: caregiver sister Alcohol History Details: 1. How often do you have a drink containing alcohol?: a. Never AUDIT-C Alcohol total score: 0 Tobacco History: Patient Tobacco Use Status: Never used Tobacco Smoked in Last 30 Days: No e-Cigarette/Vaping Use: Never Used Second Hand Smoke Exposure: No Substance Use History: Use of substances other than those prescribed or required for medical reasons: No Advance Directives: Advance Directives: No Advance Directives Information Provided: Yes Homicidal Assessment: Do you have a plan to hurt others: No Plan Nutrition Assessment: Nutrition Risks: No Nutritional Risk Poor oral hygiene: No Occupation Assessmet: service: No Current occupational status: disabled Home Medications and Allergies Current Medications: Current Medications Calcium Carbonate (Calcium Carbonate 750 Mg Tab.Chew) 750 mg PO Q4H PRN PRN Reason: Heartburn Enoxaparin Sodium (Enoxaparin Sodium 40 Mg/0.4 Ml Syringe) 40 mg SUBCUT Q24H DANIELA Piperacillin Sod/Tazobactam (Sod 3.375 gm/ Sodium Chloride) 50 mls @ 100 mls/hr IV Q6H DANIELA Last Infusion: 07/08/25 06:05 Dose: Infused Acetaminophen (Ofirmev) 1,000 mg in 100 mls @ 400 mls/hr IV Q6H PRN PRN Reason: Pain, Mild 1-3,fever,headache Last Admin: 07/08/25 06:38 Dose: 400 mls/hr Vancomycin HCl 1,500 mg/ (Sodium Chloride) 500 mls @ 333.333 mls/hr IV Q12H [facility] Levetiracetam (Keppra) 500 mg in 100 mls @ 400 mls/hr IV BID [facility] Last Infusion: 07/08/25 00:03 Dose: Infused Magnesium Hydroxide (Milk Of Magnesia 30 Ml Oral.Susp) 30 ml PO DAILY PRN PRN Reason: Constipation Melatonin (Melatonin 3 Mg Tablet) 6 mg PO BEDTIME PRN PRN Reason: Insomnia Morphine Sulfate (Morphine Sulfate 4 Mg/Ml Cartridge) 2 mg IVPUSH Q4H PRN; Protocol PRN Reason: Pain, Severe (Pain Scale 7-10) Morphine Sulfate (Morphine Sulfate 4 Mg/Ml Cartridge) 4 mg IVPUSH Q4H PRN; Protocol PRN Reason: Pain, Severe (Pain Scale 7-10) Ondansetron HCl (Ondansetron Hcl 4 Mg/2 Ml Vial) 4 mg IVPUSH Q8H PRN PRN Reason: Nausea and Vomiting Pharmacy Consult (Consult Rx Vancomycin Dosing) 1 each MISCELLANE DAILY PRN PRN Reason: Consult order Sodium Chloride (0.9 % Sodium Chloride Flush 3 Ml Syringe) [address] [facility] Last Admin: 07/07/25 23:49 Dose: 3 ml Home Medications ?Medication ?Instructions ?Recorded ?Confirmed ?Type guanfacine 2 mg tablet 2 mg PO DAILY 07/07/25 07/07/25 History rxvwzoqk-crkqdarg-werjv acid 400 1 tab PO DAILY 07/07/25 07/07/25 History mcg-vit K 20 mcg-lycop 300 mcg tablet (One-A-Day Men's Multivitamin) Allergies Allergy/AdvReac Type Severity Reaction Status Date / Time No Known Allergies Allergy Verified 07/07/25 15:31 Physical Exam Vital signs: Vital Signs Temp 98.4 F 07/08/25 07:27 Pulse 192 H 07/08/25 07:27 Resp 44 H 07/08/25 07:42 BP 125/83 07/08/25 07:27 Pulse Ox 95 07/08/25 07:27 O2 Del Method High Flow Nasal Cannula 07/08/25 07:27 O2 Flow Rate 50 07/08/25 07:27 FiO2 80 07/08/25 07:27 Intake & Output 07/07/25 07/08/25 07/08/25 18:59 06:59 18:59 Intake Total 2245.29 / 3195.290 950.000 / 3195.290 Balance 2245.29 / 3195.290 950.000 / 3195.290 Intake: Intake, Oral Amount 0 / 0 Intake, IV Amount 2245.29 / 3195.290 950.000 / 3195.290 0.9 % Sodium Chloride 2,245.29 2245.29 / 2245.29 ml @ 2245.29 mls/hr IV .Q1H STA Rx#:[id number] Azithromycin 500 mg In 0.9 % 250.000 / 250.000 Sodium Chloride 250 ml @ 125 mls/hr IV ONCE ONE Rx#: [id number] Piperacillin Sodium/Tazobactam 100 / 100 3.375 gm In 0.9 % Sodium Chloride 50 ml @ 100 mls/hr IV Q6H DANIELA Rx#:[id number] levETIRAcetam in NaCl (iso-os) 100 / 100 500 mg In 100 ml @ 400 mls/hr IV BID DANIELA Rx#:[id number] vancomycin HCL 1,500 mg In 0.9 500 / 500 % Sodium Chloride 500 ml @ 333. 333 mls/hr IV ONCE ONE Rx#: [id number] Other: Last Bowel Movement 07/08/25 Weight 74.843 kg Weight 74.843 kg Hem/Onc Consult Result - Labs CBC & Chem 7: 07/08/25 06:07 07/08/25 06:07 Labs: Short CBC 07/07/25 07/07/25 07/08/25 Range/Units 16:02 18:56 06:07 WBC 12.6 H 11.4 H 2.6 L (4.8-10.8) X10*3/uL Hgb 11.9 L 11.3 L 12.9 L (14.0-18.0) g/dl Hct 36.1 L 34.4 L 41.6 L D (42.0-52.0) % Plt Count 249 216 245 (160-400) X10*3/uL BMP 07/07/25 07/08/25 16:02 06:07 Sodium 135 140 Potassium 4.6 4.4 Chloride 97 102 Carbon Dioxide 29 26 BUN 13 13 Creatinine 0.61 0.62 Calcium 8.6 8.3 L Liver Function 07/07/25 Range/Units 16:02 Total Bilirubin 0.8 (0.0-1.0) mg/dL AST 43 H (5-37) U/L ALT 16 (0-40) U/L Alkaline Phosphatase 91 (39-117) U/L Albumin 3.3 L (3.5-5.0) g/dL Assessment and Plan Patient Active problem list reviewed?: Yes - Time Spent With Patient Time Spent with Patient (in minutes): 0
--- NOTE | 2025-07-08 10:17 | PC.NURSE ---
Assumed care at 7:05 today. pt was having tachy 170s-190s. Provider notified. pt as recently medicated w IV Tylenol for fever and Metoprolol w no affect on HR. other VS at 7 AM remained stable, ekg taken per order. pt on HFNC, restless, sweating. KAYCEE Robertson presented at bedside to assess the pt and Dr Bob was also coming in eval pt. pt then had a brief convulsion activity. Pulse checked and it was pulseless. Mother is at bedside the whole time. pt is DNR/DNI. KAYCEE Robertson announced time is at 0752.
== END 2025-07-08 11:56 | disposition expired | DRG 871 ==
LOC: HO.ED 18:37 → HO.EDOVER 22:27 → HO.IMC 07-08 00:18
PROVIDERS: Physician Assistant; Admitting Provider Physician Assistant; Emergency Provider Emergency Medicine Emergency Medical Services; Visit Provider Student in an Organized Health Care Education/Training Program
DX: A41.9 Sepsis, unspecified organism (principal); I26.99 Other pulmonary embolism without acute cor pulmonale; J18.9 Pneumonia, unspecified organism; J96.01 Acute respiratory failure with hypoxia; K50.90 Crohn's disease, unspecified, without complications; J91.8 Pleural effusion in other conditions classified elsewhere; C78.6 Secondary malignant neoplasm of retroperitoneum and peritoneum; Z66 Do not resuscitate; Q99.8 Other specified chromosome abnormalities; R62.50 Unspecified lack of expected normal physiological development in childhood; G40.909 Epilepsy, unspecified, not intractable, without status epilepticus; Z20.822 Contact with and (suspected) exposure to COVID-19; Z79.899 Other long term (current) drug therapy
CPT/HCPCS: 36415; 71045; 71250; 74177; 78580; 80048; 80053; 83605; 83615; 83880; 85007; 85025; 85027; 85610; 85730; 87040; 87637; 93005; 99212; 99285; A9540; J0131; J0456; J0616; J0696; J1650; J1885; J1953; J2270; J2543; J3374; Q9967

== ENCOUNTER → 2025-07-07 15:35 | Outpatient (BNV) | payer MEDICARE, MEDICAID, SELFPAY | PROVIDERS: Emergency Provider Emergency Medicine Emergency Medical Services; Visit Provider Radiology Diagnostic Radiology | DX: I49.9 Cardiac arrhythmia, unspecified (principal); R00.2 Palpitations | CPT/HCPCS: 78580 ==

== ENCOUNTER → 2025-07-07 15:35 | Outpatient (BNV) | payer MEDICARE, MEDICAID, SELFPAY | PROVIDERS: Admitting Provider Physician Assistant; Emergency Provider Emergency Medicine Emergency Medical Services; Visit Provider Internal Medicine | DX: R00.0 Tachycardia, unspecified (principal) | CPT/HCPCS: 93010 ==

== ENCOUNTER → 2025-07-07 16:12 | Outpatient (BNV) | payer MEDICARE, MEDICAID, SELFPAY | PROVIDERS: Emergency Provider Emergency Medicine Emergency Medical Services; Visit Provider Surgery | DX: C76.2 Malignant neoplasm of abdomen (principal) | CPT/HCPCS: 99222 ==

== ENCOUNTER 2025-07-07 22:23 | Outpatient (BNV) | payer MEDICARE, MEDICAID, SELFPAY | END 2025-07-08 07:28 | PROVIDERS: Admitting Provider Physician Assistant; Emergency Provider Emergency Medicine Emergency Medical Services; Visit Provider Internal Medicine | DX: R00.0 Tachycardia, unspecified (principal) | CPT/HCPCS: 93010 ==

== ENCOUNTER → 2025-07-07 22:23 | Outpatient (BNV) | payer MEDICARE, MEDICAID, SELFPAY | PROVIDERS: Admitting Provider Physician Assistant; Emergency Provider Emergency Medicine Emergency Medical Services; Visit Provider Physician Assistant | DX: J96.01 Acute respiratory failure with hypoxia (principal); A41.9 Sepsis, unspecified organism; J90 Pleural effusion, not elsewhere classified; J18.9 Pneumonia, unspecified organism; K65.1 Peritoneal abscess; R19.00 Intra-abdominal and pelvic swelling, mass and lump, unspecified site; R60.9 Edema, unspecified | CPT/HCPCS: 99223 ==